=== PATIENT | male | born 1955 | race Caucasian/White ===

== ENCOUNTER → 2018-04-19 | Outpatient (CLI) | payer OTHER ==
[~2018-04-19] MED LIST: AMT10 PO; ASPI81TA28 PO; ATEN-175 PO; DILT-111 PO
--- NOTE | 2018-04-19 19:12 | DIAGNOSTIC IMAGING REPORT ---
LUMBAR SPINE W/O CONTRAST CLINICAL HISTORY: 63 year-old Male with LUMBAR SPINE. Acute left foot drop without reported trauma. COMPARISON: None. TECHNIQUE: Multiplanar, multi sequence MRI of the lumbar spine was performed without intravenous contrast. 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 No acute process of the imaged intra-abdominal, intrapelvic or paraspinal structures. 10 mm perineural root sleeve cyst is noted at S2-S3. No acute fracture or focal bone marrow edema. Multilevel discogenic degenerative changes as described below. Short pedicles throughout the lumbar spine cause baseline mild central canal narrowing. There is a focal area of heterogeneous signal involving the central canal posterior to the L1 vertebral body measuring up to 1.6 cm in craniocaudal dimension with apparent clumping of the nerve roots and increased T2 signal, image 9 series 4 and image 9 series 6. Circumscribed mass is not clearly seen. The conus medullaris terminates at the L1 level. The remaining cauda equina appear unremarkable. T12-L1: Spondylitic spurring with circumferential annular disc bulge, ligamentum flavum thickening and mild facet arthrosis. Suggested focal disc protrusion measures 7 mm involving the left lateral recess distribution causing mild to moderate left lateral recess stenosis. No significant central canal or foraminal narrowing identified. L1-L2: Spondylitic spurring with circumferential annular disc bulge favoring the right paracentral distribution, severe facet arthrosis with ligamentum flavum thickening cause severe central canal narrowing, AP dimension of the thecal sac measuring 5 mm. Moderate right and mild to moderate left foraminal stenosis. L2-L3: Spondylitic spurring with circumferential annular disc bulge, ligamentum flavum thickening and severe facet arthrosis. Thecal sac is narrowed to 6 mm in AP dimension causing moderate to severe central canal and mild to moderate bilateral foraminal narrowing. L3-L4: Spondylitic spurring with large circumferential annular disc bulge. Left paracentral/left lateral recess disc extrusion measures 0.4 x 1.0 x 1.2 cm in AP, transverse and craniocaudal dimensions. There is resultant moderate central canal, mild left lateral recess and moderate bilateral foraminal narrowing. L4-L5: Spondylitic spurring with circumferential annular disc bulge, severe facet arthrosis with ligamentum flavum thickening. These findings cause mild central canal, moderate to severe right and severe left foraminal stenosis. L5-S1: 4 mm retrolisthesis L5 on S1 with spondylitic spurring, circumferential annular disc bulge and moderate facet arthrosis. No significant central canal narrowing. Moderate right and severe left foraminal stenosis. IMPRESSION: 1. Focal area of heterogeneous signal involving the central canal posterior to the L1 vertebral body measuring up to 1.6 cm in craniocaudal dimension with apparent clumping of the nerve roots and increased T2 signal is noted. These findings may be secondary to associated central canal stenosis at L1-L2 as described above however an intradural extramedullary mass lesion could have a similar appearance. Further evaluation with MRI of the lumbar spine with IV contrast recommended. 2. Shortened pedicles cause baseline mild central canal stenosis. Multilevel advanced discogenic degenerative changes and facet arthrosis cause varying degrees of central canal and foraminal narrowing as above. Severe central canal stenosis at L1-L2 with moderate to severe central canal stenosis at L2-L3. 3. Multilevel severe foraminal narrowing as above. The above report was generated using voice recognition software. It may contain grammatical, syntax or spelling errors. Dictated: 04/19/2018 5:56 PM Transcribed: 04/19/2018 7:12 PM [email or web address] Electronically signed by: Saurabh Zamora M.D. 04/19/2018 9:57 PM Dictated Date/Time: 04/19/2018 5:56 PM
== END | disposition home or self-care (01) ==
LOC: C.MRI 04-12 20:20
PROVIDERS: ATTEND Physician Assistant
DX: M48.061 Spinal stenosis, lumbar region without neurogenic claudication (principal); M47.817 Spondylosis without myelopathy or radiculopathy, lumbosacral region; R93.7 Abnormal findings on diagnostic imaging of other parts of musculoskeletal system; M21.372 Foot drop, left foot

== ENCOUNTER 2024-05-31 10:04 | Inpatient (IN) ==
--- NOTE | 2024-05-31 10:42 | Emergency Department Note ---
Impression & Plan Acute Lyme disease, Leukopenia, Acute hyponatremia, Thrombocytopenia, Acute hypokalemia ED Provider Note NAME: YARIEL CHOE AGE: 69 SEX: M : 1955 ARRIVES VIA: Walk-In INFORMANT: Patient ED PROVIDER(S): Maury Oseguera DO CHIEF COMPLAINT: Chills HPI: Patient is a 69-year-old male who presents the ER for chills. His symptoms initially started on Thursday with feeling hot and cold and chills. He admits to a cough that has been present for the past 2 weeks. No change. No chest pain or shortness of breath. No belly pain. No nausea vomiting or diarrhea. No dysuria urgency or frequency. No other exacerbating or remitting factors. Denies any tick bites. No open wounds or sores. He notes he was taken Tylenol and Motrin previously but has not taken any in the past 24 hours. ADDITIONAL HISTORY OBTAINED: Per HPI Chronic Medical/Social Conditions Affecting Care: Per HPI PAST MEDICAL HISTORY:See Below PAST SURGICAL HISTORY:See Below FAMILY HISTORY:See Below SOCIAL HISTORY:See Below HOME MEDICATIONS:See Below ALLERGIES:See Below VITALS:See Below PHYSICAL EXAMINATION: GENERAL: Sitting up in bed, alert, well appearing, well nourished, no distress, non-toxic EYE EXAM: normal conjunctiva. PERRL and EOM's grossly intact. OROPHARYNX: no exudate, no erythema, lips, buccal mucosa, and tongue normal and mucous membranes are moist NECK: supple, no nuchal rigidity, no adenopathy, non-tender LUNGS: Clear to auscultation. Normal chest wall mechanics HEART: no murmurs, S1 normal and S2 normal ABDOMEN: abdomen soft, non-tender, normo-active bowel sounds, no masses, no rebound or guarding. BACK: Back is symmetrical on inspection and there is no deformity, no midline tenderness, no CVA tenderness. SKIN: no rashes and no bruising UPPER EXTREMITIES: upper extremities are grossly normal. LOWER EXTREMITIES: No pitting edema. NEURO EXAM: Normal sensorium, cranial nerves II-XII grossly intact, normal speech, no gross weakness of arms, no gross weakness of legs. MEDICAL DECISION MAKING: Patient is a 69-year-old male who presents ER for above-stated complaint. IV was established blood work is obtained. Labs show leukopenia 4000. No significant anemia. Thrombocytopenia at 92 and commendation with a hyponatremia hypokalemia and a low mag at 1.4. LFTs were unremarkable. Troponin mildly elevated. Pro-Hal 8.7. UA was unremarkable. Viral panel was positive for Lyme screen as well as IgG. This would support the hyponatremia leukopenia and thrombocytopenia. Also considered anaplasmosis and consequently covered initially with Rocephin IV and followed this by doxycycline. Smear was negative but still has a 30% chance of having anaplasmosis. Patient was updated bedside discussed with the hospitalist for further workup. Given 2 L of normal saline. Consults/Care Managements Discussions: Per [facility] Triage Nursing notes reviewed. Limited review of prior medical records performed Vital Signs: reviewed and remarkable for no significant abnormalities Differential diagnosis: Differential diagnosis includes etiologies such as sepsis, UTI, pneumonia, metabolic, electrolyte abnormalities, cardiac sources, intracerebral event, toxicologic, neurological, as well as others were entertained. ER treatment provided: See below Diagnostics interpreted by me include EKG and cardiac monitoring as listed below: -Cardiac Monitoring: An order was placed for continuous cardiac monitoring. The monitor shows a rate of 80 with sinus rhythm. -ECG: Sinus rhythm rate 83 Left axis Right bundle branch block T wave version septal leads QTc 44 -Laboratory studies:Interpreted by me as stated above in MDM and shown below. Imaging studies: Xrays: As interpreted by me: Portable AP upright 1 view of the chest shows no focal infiltrate CTs show: None Procedures: None Critical Care: None Past Med/Surg History Problem List (Updated 05/31/24 @ 14:12 by Maury Oseguera DO) Acute hypokalemia (Acute) Thrombocytopenia (Acute) Acute hyponatremia (Acute) Leukopenia (Acute) Acute Lyme disease (Acute) Lyme borreliosis Electrolyte and fluid disorder Change in bowel habits Family history normal Family history of colon cancer Encounter for pre-operative examination Change in bowel habits Encounter for pre-operative examination History of colon polyps Pulmonary nodules monitoring, yearly CT's HLD (hyperlipidemia) Obesity (BMI 30-39.9) Hypertension (Acute) Medical History Bradycardia pt states runs around 58 Constipation Depression HLD (hyperlipidemia) Hypertension Left foot drop Obesity (BMI 30-39.9) Pulmonary nodules monitoring, yearly CT's Surgical History History of colonoscopy with polypectomy History of laparoscopic cholecystectomy (~08/2018) History of tonsillectomy History of tooth extraction all teeth removed Family History Mother Family history of diabetes mellitus Uncle Family history of diabetes mellitus Uncle Family history of diabetes mellitus Father Family hx of colon cancer Other No family history of adverse response to anesthesia No significant family history Social History Smoking Status: Never smoker Second Hand Exposure: No; Do You Dip or Chew Tobacco: No; Hx Alcohol Use: No Hx Substance Use: No Preferred Language: Beninese Communication Ability: Effective Visual Impairment: No Limitations 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 Beliefs That Will Affect Care: None Current Living Situation: Family Current Living Situation Comment: lives with son Feels Safe at Home: Yes Assistive Devices: Denture - Upper, Denture - Lower and Glasses Allergies Allergies Allergy/AdvReac Type Severity Reaction Status Date / Time No Known Allergies Allergy Verified 05/31/24 11:19 Home Meds Home Medications Medication Instructions Recorded Confirmed aspirin 81 mg tablet,delayed 81 mg PO HS 09/22/18 05/31/24 release chlorthalidone 25 mg tablet 25 mg PO QAM 09/22/18 05/31/24 diltiazem HCl 300 mg 300 mg PO QAM 09/22/18 05/31/24 tablet,extended release 24 hr atenolol 50 mg tablet 50 mg PO QAM 01/18/21 05/31/24 docusate sodium 100 mg capsule 100 mg PO DAILY PRN Constipation 01/18/21 05/31/24 omega-3 fatty acids 1,000 mg PO HS 01/18/21 05/31/24 pravastatin 20 mg tablet 20 mg PO HS 01/18/21 05/31/24 psyllium husk 3.4 gram/5.4 gram 1 tbsp PO QAM 01/18/21 05/31/24 oral powder (Metamucil) finasteride 5 mg tablet 5 mg PO QAM 03/02/23 05/31/24 tamsulosin 0.4 mg capsule 0.4 mg PO QAM 03/02/23 05/31/24 Results & Data (ED) Vital Signs Vital Signs - 24 hr 05/31/24 10:07 05/31/24 10:19 05/31/24 10:23 Temperature 37 C Temperature Source Oral Pulse Rate 91 H 84 Pulse Rate [Apical] Respiratory Rate 14 Respiratory Effort / Characteristics Respiratory Depth Respiratory Pattern Blood Pressure 125/71 Blood Pressure [Right Arm] Blood Pressure Mean 89 Blood Pressure Mean [Right Arm] Blood Pressure Position [Right Arm] Pulse Oximetry 93 93 Oxygen Delivery Method Room Air Room Air Sepsis New/Unexplained Change in Mental Status No Sepsis Action Taken by Nursing No Action Required 05/31/24 10:37 05/31/24 12:38 05/31/24 13:30 Temperature Temperature Source Pulse Rate Pulse Rate [Apical] 83 77 80 Respiratory Rate 18 20 20 Respiratory Effort / Characteristics Non-Labored Spontaneous Respiratory Depth Normal Normal Normal Respiratory Pattern Regular Blood Pressure Blood Pressure [Right Arm] 132/65 125/72 118/72 Blood Pressure Mean Blood Pressure Mean [Right Arm] 87 89 87 Blood Pressure Position [Right Arm] Lying Pulse Oximetry 90 91 Oxygen Delivery Method Room Air Room Air Room Air Sepsis New/Unexplained Change in Mental Status Sepsis Action Taken by Nursing Laboratory Data 05/31/24 10:30 05/31/24 10:30 Lab Results 05/31/24 05/31/24 05/31/24 Range/Units 10:30 10:39 10:50 WBC 4.15 L (4.8-10.8) K/ul RBC 5.08 (4.70-6.10) M/uL Hgb 15.2 (14.0-18.0) g/dl Hct 42.6 (42.0-52.0) % MCV 83.9 (80.0-100.0) fL MCH 29.9 (25.0-34.0) pg MCHC 35.7 (32.0-36.0) g/dL RDW Std Deviation 37.8 (36.4-46.3) fL RDW Coeff of [place] 12.4 (11.5-14.5) % Plt Count 92 L (130-400) K/uL MPV 10.7 (9.4-12.4) fL Immature Gran % (Auto) 0.5 % Neut % (Auto) 85.6 % Lymph % (Auto) 6.7 % [place] % (Auto) 7.0 % Eos % (Auto) 0.0 % Baso % (Auto) 0.2 % Neut # (Auto) 3.55 (1.40-6.50) K/uL Lymph # (Auto) 0.28 L (1.20-3.40) K/uL [place] # (Auto) 0.29 (0.11-0.59) K/uL Eos # (Auto) 0.00 (0.00-0.50) K/uL Baso # (Auto) 0.01 (0.00-0.20) K/uL Immature Gran # (Auto) 0.02 (0.01-0.20) K/uL Sodium 130 L (136-145) mmol/L Potassium 2.6 L (3.5-5.1) mmol/L Chloride 95 L (98-107) mmol/L Carbon Dioxide 26 (21-32) mmol/L Anion Gap 9 (3-11) BUN 17 (6-23) mg/dl Creatinine 0.96 (0.6-1.4) mg/dl Est Cr Clr Drug Dosing 94.4 ml/min Est GFR ( Amer) 91.8 ml/min Est GFR (Non-Af Amer) 79.2 ml/min BUN/Creatinine Ratio 17.7 (10-20) Glucose 142 H (70-99(Fasting)) mg/dl Lactate 1.6 (0.4-2.0) mmol/L Calcium 8.5 L (8.6-10.3) mg/dl Magnesium 1.4 L (1.7-2.4) mg/dl Total Bilirubin 1.5 H (0.2-1.0) mg/dl Direct Bilirubin 0.4 H (0-0.2) mg/dl AST 48 H (13-39) U/L ALT 30 (7-52) U/L Alkaline Phosphatase 73 (34-104) U/L Troponin I High Sens 20.8 H (0-20) pg/ml Total Protein 6.7 (6.0-8.3) gm/dl Albumin 3.7 (3.4-5.0) gm/dl Procalcitonin 0.72 H (0-0.5) ng/ml Urine Color Urine Appearance (Clear) Urine pH (4.5-7.5) Ur Specific [place] (1.000-1.030) Urine Protein (Negative) Urine Glucose (UA) (Negative) Urine Ketones (Negative) Urine Blood (Negative) Urine Nitrite (Negative) Urine Bilirubin (Negative) Urine Urobilinogen (Negative) Ur Leukocyte Esterase (Negative) Urine WBC (Auto) (0-5) /hpf Urine RBC (Auto) (0-2) /hpf U Hyaline Cast (Auto) (0-2) /lpf U Epithel Cells (Auto) (0-2) /hpf Urine Bacteria (Auto) (None Seen) Hyaline Casts (None Presnt) /lpf Granular Casts (None Prsent) /lpf Urine Mucus (None Prsent) Adenovirus (PCR) Not Detected (NotDetected) Anaplasma Smear B. pertussis DNA (PCR) Not Detected (NotDetected) B.parapertussis DNA PCR Not Detected (NotDetected) Lyme Disease Screen Positive H (Negative) Lyme Tier 2 IgG Confirm Positive H (Negative) Lyme Tier 2 IgM Confirm Negative (Negative) C. pneumoniae DNA (PCR) Not Detected (NotDetected) Coronavirus OC43 (PCR) Not Detected (NotDetected) Coronavirus HKU1 (PCR) Not Detected (NotDetected) Coronavirus 229E (PCR) Not Detected (NotDetected) SARS-CoV-2 (PCR) Not Detected (NotDetected) Coronavirus NL63 (PCR) Not Detected (NotDetected) Human Metapneumovir PCR Not Detected (NotDetected) Influenza Type A (PCR) Not Detected (NotDetected) Influenza Type B (PCR) Not Detected (NotDetected) M. pneumoniae (PCR) Not Detected (NotDetected) Parainfluenza 1 (PCR) Not Detected (NotDetected) Parainfluenza 2 (PCR) Not Detected (NotDetected) Parainfluenza 3 (PCR) Not Detected (NotDetected) Parainfluenza 4 (PCR) Not Detected (NotDetected) RSV (PCR) Not Detected (NotDetected) Entero/Rhino (PCR) Not Detected (NotDetected) 05/31/24 05/31/24 Range/Units 12:16 12:50 WBC (4.8-10.8) K/ul RBC (4.70-6.10) M/uL Hgb (14.0-18.0) g/dl Hct (42.0-52.0) % MCV (80.0-100.0) fL MCH (25.0-34.0) pg MCHC (32.0-36.0) g/dL RDW Std Deviation (36.4-46.3) fL RDW Coeff of [place]use[place] (11.5-14.5) % Plt Count (130-400) K/uL MPV (9.4-12.4) fL Immature Gran % (Auto) % Neut % (Auto) % Lymph % (Auto) % [place] % (Auto) % Eos % (Auto) % Baso % (Auto) % Neut # (Auto) (1.40-6.50) K/uL Lymph # (Auto) (1.20-3.40) K/uL [place] # (Auto) (0.11-0.59) K/uL Eos # (Auto) (0.00-0.50) K/uL Baso # (Auto) (0.00-0.20) K/uL Immature Gran # (Auto) (0.01-0.20) K/uL Sodium (136-145) mmol/L Potassium (3.5-5.1) mmol/L Chloride (98-107) mmol/L Carbon Dioxide (21-32) mmol/L Anion Gap (3-11) BUN (6-23) mg/dl Creatinine (0.6-1.4) mg/dl Est Cr Clr Drug Dosing ml/min Est GFR ( Amer) ml/min Est GFR (Non-Af Amer) ml/min BUN/Creatinine Ratio (10-20) Glucose (70-99(Fasting)) mg/dl Lactate (0.4-2.0) mmol/L Calcium (8.6-10.3) mg/dl Magnesium (1.7-2.4) mg/dl Total Bilirubin (0.2-1.0) mg/dl Direct Bilirubin (0-0.2) mg/dl AST (13-39) U/L ALT (7-52) U/L Alkaline Phosphatase (34-104) U/L Troponin I High Sens 20.5 H (0-20) pg/ml Total Protein (6.0-8.3) gm/dl Albumin (3.4-5.0) gm/dl Procalcitonin (0-0.5) ng/ml Urine Color Dark Yellow Urine Appearance Clear (Clear) Urine pH 6.5 (4.5-7.5) Ur Specific [place] 1.012 (1.000-1.030) Urine Protein 1+ H (Negative) Urine Glucose (UA) Negative (Negative) Urine Ketones Negative (Negative) Urine Blood Negative (Negative) Urine Nitrite Negative (Negative) Urine Bilirubin Negative (Negative) Urine Urobilinogen Positive H (Negative) Ur Leukocyte Esterase Negative (Negative) Urine WBC (Auto) 0-5 (0-5) /hpf Urine RBC (Auto) 0-2 (0-2) /hpf U Hyaline Cast (Auto) 6-10 H (0-2) /lpf U Epithel Cells (Auto) 0-2 (0-2) /hpf Urine Bacteria (Auto) None Seen (None Seen) Hyaline Casts P (None Presnt) /lpf Granular Casts P (None Prsent) /lpf Urine Mucus Present A (None Prsent) Adenovirus (PCR) (NotDetected) Anaplasma Smear See Comment B. pertussis DNA (PCR) (NotDetected) B.parapertussis DNA PCR (NotDetected) Lyme Disease Screen (Negative) Lyme Tier 2 IgG Confirm (Negative) Lyme Tier 2 IgM Confirm (Negative) C. pneumoniae DNA (PCR) (NotDetected) Coronavirus OC43 (PCR) (NotDetected) Coronavirus HKU1 (PCR) (NotDetected) Coronavirus 229E (PCR) (NotDetected) SARS-CoV-2 (PCR) (NotDetected) Coronavirus NL63 (PCR) (NotDetected) Human Metapneumovir PCR (NotDetected) Influenza Type A (PCR) (NotDetected) Influenza Type B (PCR) (NotDetected) M. pneumoniae (PCR) (NotDetected) Parainfluenza 1 (PCR) (NotDetected) Parainfluenza 2 (PCR) (NotDetected) Parainfluenza 3 (PCR) (NotDetected) Parainfluenza 4 (PCR) (NotDetected) RSV (PCR) (NotDetected) Entero/Rhino (PCR) (NotDetected) Administered Medications Magnesium Sulfate/Dextrose (Magnesium Sulfate / D5w) 1 gm in 100 mls @ 50 mls/hr IV ONE ONE Stop: 05/31/24 14:29 Last Admin: 05/31/24 12:53 Dose: 50 mls/hr Documented By: BEV Discontinued Medications Ceftriaxone Sodium (Rocephin) 2,000 mg in 50 mls @ 100 mls/hr IV NOW STA Stop: 05/31/24 11:09 Last Infusion: 05/31/24 11:19 Dose: Infused Documented By: Admin: 05/31/24 10:48 Dose: 100 mls/hr Documented By: GREYSON Sodium Chloride (Nss) 1,000 mls @ 999 mls/hr IV .Q1H1M ONE Stop: 05/31/24 11:41 Last Infusion: 05/31/24 11:42 Dose: Infused Documented By: Admin: 05/31/24 10:48 Dose: 999 mls/hr Documented By: GREYSON Doxycycline Hyclate 100 mg/ (Dextrose) 100 mls @ 50 mls/hr IV NOW STA Stop: 05/31/24 14:03 Last Admin: 05/31/24 12:53 Dose: 50 mls/hr Documented By: BEV Potassium Chloride (Potassium Chloride Crtab 20 Meq Tabcr) 40 meq PO NOW STA Stop: 05/31/24 12:05 Last Admin: 05/31/24 12:52 Dose: 40 meq Documented By: BEV Imaging Data Radiologist's Impression: Chest X-Ray 05/31/24 10:23 XR chest 1V portable CLINICAL HISTORY: Sepsis. COMPARISON STUDY: Chest CT August 21, 2021. Chest radiograph January 11, 2021. FINDINGS: Lung volumes are normal. Lungs are clear. There is no pneumothorax or pleural effusion. Cardiac size is stable. Mediastinal contours are normal. There is no evidence for pulmonary edema. IMPRESSION: No acute cardiopulmonary findings. No change in appearance of the chest. ACT 112: Negative or not required by law. Electronically signed by: Don Mccarthy M.D. 05/31/2024 10:41 AM Discharge Plan Visit Data Chief Complaint: Illness Stated Complaint: FEVER, CHILLS ED Provider: Maury Oseguera Discharge Problem: Acute Lyme disease, Leukopenia, Acute hyponatremia, Thrombocytopenia, Acute hypokalemia Forms Stand Alone Forms: My [facility] Prescriptions Prescriptions: No Action chlorthalidone 25 mg Tablet 25 mg PO QAM aspirin 81 mg Tablet,Delayed Release (Dr/Ec) 81 mg PO HS diltiazem HCl 300 mg tablet extended release 24 hr 300 mg PO QAM pravastatin 20 mg Tablet 20 mg PO HS atenolol 50 mg Tablet 50 mg PO QAM docusate sodium 100 mg capsule 100 mg PO DAILY PRN (Reason: Constipation) omega-3 fatty acids Capsule 1,000 mg PO HS Metamucil 3.4 gram/5.4 gram Powder 1 tbsp PO QAM tamsulosin 0.4 mg Capsule 0.4 mg PO QAM finasteride 5 mg Tablet 5 mg PO QAM Referrals Referrals: Liliane Armendariz MD [Primary Care Provider] - Discharge Problem: Leukopenia Qualifiers: Leukopenia type: unspecified Qualified Code(s): D72.819 - Decreased white blood cell count, unspecified
[2024-05-31] MEDS: cefTRIAXone SODIUM 2,000 MG/50 ML BAG IV STA (10:48)
[2024-05-31] MEDS: SODIUM CHLORIDE 0.9% 1,000 ML IV ONE (10:48)
[2024-05-31 11:06] LABS: Hematocrit (blood only) 42.6 % (42.0-52.0); Hemoglobin 15.2 g/dl (14.0-18.0); Mean Corpuscular Hemoglobin 29.9 pg (25.0-34.0); Mean Corpuscular Hgb Conc 35.7 g/dL (32.0-36.0); Mean Corpuscular Volume 83.9 fL (80.0-100.0); Mean Platelet Volume 10.7 fL (9.4-12.4); Platelet Count 92 K/uL (130-400); RDW Coefficient of Variation 12.4 % (11.5-14.5); RDW Standard Deviation 37.8 fL (36.4-46.3); Red Blood Count 5.08 M/uL (4.70-6.10); White Blood Count 4.15 K/ul (4.8-10.8)
[2024-05-31 11:12] LABS: Albumin Level 3.7 gm/dl (3.4-5.0); BUN Creatinine Ratio 17.7 (10-20); Bilirubin Direct 0.4 mg/dl (0-0.2); Bilirubin,Total 1.5 mg/dl (0.2-1.0); Calcium 8.5 mg/dl (8.6-10.3); Creatinine Clr Calc Pharmacy 94.4 ml/min; Est GFR (African American) 91.8 ml/min; Est GFR (Non-African American) 79.2 ml/min; Magnesium 1.4 mg/dl (1.7-2.4); Potassium 2.6 mmol/L (3.5-5.1); Total Protein 6.7 gm/dl (6.0-8.3)
[2024-05-31 11:18] LABS: Troponin I High Sensitivity 20.8 pg/ml (0-20)
[2024-05-31 11:37] LABS: Basophils # (auto) 0.01 K/uL (0.00-0.20); Basophils % (auto) 0.2 %; Immature Granulocytes # (auto) 0.02 K/uL (0.01-0.20); Immature Granulocytes % (auto) 0.5 %; Lymphocytes # (auto) 0.28 K/uL (1.20-3.40); Lymphocytes % (auto) 6.7 %; Monocytes # (auto) 0.29 K/uL (0.11-0.59); Neutrophils # (auto) 3.55 K/uL (1.40-6.50); Neutrophils % (auto) 85.6 %
[2024-05-31 11:51] LABS: Lyme Screen Rflx Confirmation Positive (Negative)
[2024-05-31] MEDS ORDERED: MAG SULFATE 50% 1GM/2ML VIAL IV STA (12:04)
[2024-05-31 12:13] LABS: Adenovirus PCR Not Detected (NotDetected); Bordetella parapertussis PCR Not Detected (NotDetected); Bordetella pertussis PCR Not Detected (NotDetected); Chlamydia pneumoniae PCR Not Detected (NotDetected); Coronavirus 229E PCR Not Detected (NotDetected); Coronavirus CoV-2 (COVID19)PCR Not Detected (NotDetected); Coronavirus HKU1 PCR Not Detected (NotDetected); Coronavirus NL63 PCR Not Detected (NotDetected); Coronavirus OC43PCR Not Detected (NotDetected); Human Metapneumovirus PCR Not Detected (NotDetected); Influenza A PCR Not Detected (NotDetected); Influenza B PCR Not Detected (NotDetected); Mycoplasma pneumoniae PCR Not Detected (NotDetected); Parainfluenza Virus 1 PCR Not Detected (NotDetected); Parainfluenza Virus 2 PCR Not Detected (NotDetected); Parainfluenza Virus 3 PCR Not Detected (NotDetected); Parainfluenza Virus 4 PCR Not Detected (NotDetected); Respiratory Syncytial VirusPCR Not Detected (NotDetected); Rhinovirus/Enterovirus PCR Not Detected (NotDetected)
[2024-05-31 12:25] LABS: Lyme Ab IgG 2nd Tier Confirm Positive (Negative); Lyme Ab IgM 2nd Tier Confirm Negative (Negative)
[2024-05-31] MEDS: POTASSIUM CHLORIDE CRTAB 20 MEQ TABCR PO STA (12:52)
[2024-05-31] MEDS: DOXYCYCLINE HYCLATE 100 MG in DEXTROSE 5% MINI-B 100 ML IV STA (12:53)
[2024-05-31] MEDS: MAGNESIUM SULFATE / D5W 1 GM/100 ML BAG IV ONE (12:53)
[2024-05-31] MEDS ORDERED: ALBUT/IPRATROP 3MG/0.5MG NEB 3 ML VIAL NEB PRN (13:12)
--- NOTE | 2024-05-31 13:21 | History & Physical Report ---
Date of Service May 31, 2024 Assessment & Plan (1) Lyme borreliosis: Plan: Continue CTX Continue doxycycline Await confirmatory test for Lyme (2) Electrolyte and fluid disorder: Plan: Trend labs Continue gentle IV fluids Monitor potassium and magnesium Follow sodium levels (3) Hypertension: Plan: Continue outpatient antihypertensive (4) HLD (hyperlipidemia): Plan: Continue pravastatin (5) Left foot drop: Plan: Continue using brace PT and OT consult Present on Admission?: Yes (6) Constipation: Plan: Continue Colace and MiraLAX A total of 71 minutes were spent in the care and care coordination for this patient Present on Admission?: Yes History of Present Illness Chief Complaint: Fever, chills, generalized weakness Primary Care Provider: Liliane Armendariz MD Jonathan Miranda is a 69 y/o male with a PMHX significant for HLD, HTN, BPH and left sided sciatica with left foot drop(He wears a brace on the left lower extremity). He presents to the ED today with complaints of chills, fever, and weakness. He has a poor appetite. His symptoms have been present For 2 to 3 day s. He has a dry cough. He denies sputum production. He denies sore throat or nasal congestion. He denies headache. His Lyme disease screen was positive in the ED. He cannot recall a tick bite but does mention a small lesion on his left upper thigh. He does have a dog that is in the arriaga quite a bit. He does not go outside much because of his foot drop. Workup in the ED reveals a clear chest x-ray. He has evidence of hypokalemia, hypomagnesia and hyponatremia. He was given IV magnesium and oral potassium supplementation in the ED. He was started on IV ceftriaxone and given oral doxycycline. Patient is admitted for further workup and treatment. Allergies Allergy/AdvReac Type Severity Reaction Status Date / Time No Known Allergies Allergy Verified 05/31/24 11:19 Home Medications Medication Instructions Recorded Confirmed Type aspirin 81 mg tablet,delayed 81 mg PO HS 09/22/18 05/31/24 History release chlorthalidone 25 mg tablet 25 mg PO QAM 09/22/18 05/31/24 History diltiazem HCl 300 mg 300 mg PO QAM 09/22/18 05/31/24 History tablet,extended release 24 hr atenolol 50 mg tablet 50 mg PO QAM 01/18/21 05/31/24 History docusate sodium 100 mg capsule 100 mg PO DAILY PRN Constipation 01/18/21 05/31/24 History omega-3 fatty acids 1,000 mg PO HS 01/18/21 05/31/24 History pravastatin 20 mg tablet 20 mg PO HS 01/18/21 05/31/24 History psyllium husk 3.4 gram/5.4 gram 1 tbsp PO QAM 01/18/21 05/31/24 History oral powder (Metamucil) finasteride 5 mg tablet 5 mg PO QAM 03/02/23 05/31/24 History tamsulosin 0.4 mg capsule 0.4 mg PO QAM 03/02/23 05/31/24 History Past Med/Surg History Problem List (Updated 05/31/24 @ 13:39 by Rock Bae DO) Lyme borreliosis Electrolyte and fluid disorder Change in bowel habits Family history normal Family history of colon cancer Encounter for pre-operative examination Change in bowel habits Encounter for pre-operative examination History of colon polyps Pulmonary nodules monitoring, yearly CT's HLD (hyperlipidemia) Obesity (BMI 30-39.9) Hypertension (Acute) Medical History Bradycardia pt states runs around 58 Constipation Depression HLD (hyperlipidemia) Hypertension Left foot drop Obesity (BMI 30-39.9) Pulmonary nodules monitoring, yearly CT's Surgical History History of colonoscopy with polypectomy History of laparoscopic cholecystectomy (~08/2018) History of tonsillectomy History of tooth extraction all teeth removed Family History Mother Family history of diabetes mellitus Uncle Family history of diabetes mellitus Uncle Family history of diabetes mellitus Father Family hx of colon cancer Other No family history of adverse response to anesthesia No significant family history Social History Smoking Status: Never smoker Second Hand Exposure: No; Do You Dip or Chew Tobacco: No; Hx Alcohol Use: No Hx Substance Use: No Preferred Language: Uzbek Communication Ability: Effective Visual Impairment: No Limitations Chuck Boner Required: No Beliefs That Will Affect Care: None Current Living Situation: Family Current Living Situation Comment: lives with son Feels Safe at Home: Yes Assistive Devices: Denture - Upper, Denture - Lower and Glasses Review of Systems Constitutional: Has fever, fatigue and chills Eyes: no diplopia and no worsening vision Ear, Nose, Mouth, Throat: no dizziness, no nasal discharge, no facial pain and no sore throat Cardiovascular: no chest pain, no palpitations, no lightheadedness and no syncope Genitourinary: no dysuria, no urinary frequency, no urinary hesitancy or no hematuria Integumentary: no rash, no lesions and no wounds Neurologic: Chronic back pain and foot drop on back Psychiatric: no depression and no anxiety Physical Exam Constitutional: well developed and well nourished Eyes: PERRL, conjunctivae normal, anicteric sclerae ENMT: external ear and nose normal, oropharynx normal Neck: trachea midline, no thyromegaly Respiratory: normal respiratory effort, lungs clear to auscultation Cardiovascular: Rate/Rhythm: regular rate and regular rhythm Chest (Breasts): Chest: normal inspection of chest Gastrointestinal (Abdomen): Inspection/Auscultation: abdomen normal to inspection and normal bowel sounds Skin: no rashes, warm and dry Neurologic: Has a foot drop and weakness on the left. CN intact, Alert O X 3 Results & Data Results & Data Vital Signs (Past 12 Hours) Vital Signs Temp Pulse Pulse Resp BP BP Pulse Ox 05/31/24 12:38 77 20 125/72 90 05/31/24 10:37 83 18 132/65 05/31/24 10:23 84 05/31/24 10:19 93 05/31/24 10:07 37 C 91 H 14 125/71 93 O2 Del Method 05/31/24 12:38 Room Air 05/31/24 10:37 Room Air 05/31/24 10:23 05/31/24 10:19 Room Air 05/31/24 10:07 Room Air Laboratory Results Laboratory Results WBC 4.15 K/ul (4.8-10.8) L 05/31/24 10:30 RBC 5.08 M/uL (4.70-6.10) 05/31/24 10:30 Hgb 15.2 g/dl (14.0-18.0) 05/31/24 10:30 Hct 42.6 % (42.0-52.0) 05/31/24 10:30 MCV 83.9 fL (80.0-100.0) 05/31/24 10:30 MCH 29.9 pg (25.0-34.0) 05/31/24 10:30 MCHC 35.7 g/dL (32.0-36.0) 05/31/24 10:30 RDW Std Deviation 37.8 fL (36.4-46.3) 05/31/24 10:30 RDW Coeff of Huseyin 12.4 % (11.5-14.5) 05/31/24 10:30 Plt Count 92 K/uL (130-400) L 05/31/24 10:30 MPV 10.7 fL (9.4-12.4) 05/31/24 10:30 Immature Gran % (Auto) 0.5 % 05/31/24 10:30 Neut % (Auto) 85.6 % 05/31/24 10:30 Lymph % (Auto) 6.7 % 05/31/24 10:30 [place] % (Auto) 7.0 % 05/31/24 10:30 Eos % (Auto) 0.0 % 05/31/24 10:30 Baso % (Auto) 0.2 % 05/31/24 10:30 Neut # (Auto) 3.55 K/uL (1.40-6.50) 05/31/24 10:30 Lymph # (Auto) 0.28 K/uL (1.20-3.40) L 05/31/24 10:30 [place] # (Auto) 0.29 K/uL (0.11-0.59) 05/31/24 10:30 Eos # (Auto) 0.00 K/uL (0.00-0.50) 05/31/24 10:30 Baso # (Auto) 0.01 K/uL (0.00-0.20) 05/31/24 10:30 Immature Gran # (Auto) 0.02 K/uL (0.01-0.20) 05/31/24 10:30 Sodium 130 mmol/L (136-145) L 05/31/24 10:30 Potassium 2.6 mmol/L (3.5-5.1) L 05/31/24 10:30 Chloride 95 mmol/L (98-107) L 05/31/24 10:30 Carbon Dioxide 26 mmol/L (21-32) 05/31/24 10:30 Anion Gap 9 (3-11) 05/31/24 10:30 BUN 17 mg/dl (6-23) 05/31/24 10:30 Creatinine 0.96 mg/dl (0.6-1.4) 05/31/24 10:30 Est Cr Clr Drug Dosing 94.4 ml/min 05/31/24 10:30 Est GFR ( Amer) 91.8 ml/min 05/31/24 10:30 Est GFR (Non-Af Amer) 79.2 ml/min 05/31/24 10:30 BUN/Creatinine Ratio 17.7 (10-20) 05/31/24 10:30 Glucose 142 mg/dl (70-99(Fasting)) H 05/31/24 10:30 Lactate 1.6 mmol/L (0.4-2.0) 05/31/24 10:30 Calcium 8.5 mg/dl (8.6-10.3) L 05/31/24 10:30 Magnesium 1.4 mg/dl (1.7-2.4) L 05/31/24 10:30 Total Bilirubin 1.5 mg/dl (0.2-1.0) H 05/31/24 10:30 Direct Bilirubin 0.4 mg/dl (0-0.2) H 05/31/24 10:30 AST 48 U/L (13-39) H 05/31/24 10:30 ALT 30 U/L (7-52) 05/31/24 10:30 Alkaline Phosphatase 73 U/L (34-104) 05/31/24 10:30 Troponin I High Sens 20.8 pg/ml (0-20) H 05/31/24 10:30 Total Protein 6.7 gm/dl (6.0-8.3) 05/31/24 10:30 Albumin 3.7 gm/dl (3.4-5.0) 05/31/24 10:30 Procalcitonin 0.72 ng/ml (0-0.5) H 05/31/24 10:30 Urine Color Dark Yellow 05/31/24 12:16 Urine Appearance Clear (Clear) 05/31/24 12:16 Urine pH 6.5 (4.5-7.5) 05/31/24 12:16 Ur Specific [place] 1.012 (1.000-1.030) 05/31/24 12:16 Urine Protein 1+ (Negative) H 05/31/24 12:16 Urine Glucose (UA) Negative (Negative) 05/31/24 12:16 Urine Ketones Negative (Negative) 05/31/24 12:16 Urine Blood Negative (Negative) 05/31/24 12:16 Urine Nitrite Negative (Negative) 05/31/24 12:16 Urine Bilirubin Negative (Negative) 05/31/24 12:16 Urine Urobilinogen Positive (Negative) H 05/31/24 12:16 Ur Leukocyte Esterase Negative (Negative) 05/31/24 12:16 Urine WBC (Auto) 0-5 /hpf (0-5) 05/31/24 12:16 Urine RBC (Auto) 0-2 /hpf (0-2) 05/31/24 12:16 U Hyaline Cast (Auto) 6-10 /lpf (0-2) H 05/31/24 12:16 U Epithel Cells (Auto) 0-2 /hpf (0-2) 05/31/24 12:16 Urine Bacteria (Auto) None Seen (None Seen) 05/31/24 12:16 Hyaline Casts P /lpf (None Presnt) 05/31/24 12:16 Granular Casts P /lpf (None Prsent) 05/31/24 12:16 Urine Mucus Present (None Prsent) A 05/31/24 12:16 Adenovirus (PCR) Not Detected (NotDetected) 05/31/24 10:50 Anaplasma Smear See Comment 05/31/24 12:50 B. pertussis DNA (PCR) Not Detected (NotDetected) 05/31/24 10:50 B.parapertussis DNA PCR Not Detected (NotDetected) 05/31/24 10:50 Lyme Disease Screen Positive (Negative) H 05/31/24 10:39 Lyme Tier 2 IgG Confirm Positive (Negative) H 05/31/24 10:39 Lyme Tier 2 IgM Confirm Negative (Negative) 05/31/24 10:39 C. pneumoniae DNA (PCR) Not Detected (NotDetected) 05/31/24 10:50 Coronavirus OC43 (PCR) Not Detected (NotDetected) 05/31/24 10:50 Coronavirus HKU1 (PCR) Not Detected (NotDetected) 05/31/24 10:50 Coronavirus 229E (PCR) Not Detected (NotDetected) 05/31/24 10:50 SARS-CoV-2 (PCR) Not Detected (NotDetected) 05/31/24 10:50 Coronavirus NL63 (PCR) Not Detected (NotDetected) 05/31/24 10:50 Human Metapneumovir PCR Not Detected (NotDetected) 05/31/24 10:50 Influenza Type A (PCR) Not Detected (NotDetected) 05/31/24 10:50 Influenza Type B (PCR) Not Detected (NotDetected) 05/31/24 10:50 M. pneumoniae (PCR) Not Detected (NotDetected) 05/31/24 10:50 Parainfluenza 1 (PCR) Not Detected (NotDetected) 05/31/24 10:50 Parainfluenza 2 (PCR) Not Detected (NotDetected) 05/31/24 10:50 Parainfluenza 3 (PCR) Not Detected (NotDetected) 05/31/24 10:50 Parainfluenza 4 (PCR) Not Detected (NotDetected) 05/31/24 10:50 RSV (PCR) Not Detected (NotDetected) 05/31/24 10:50 Entero/Rhino (PCR) Not Detected (NotDetected) 05/31/24 10:50 Impressions Chest X-Ray 05/31/24 10:23 XR chest 1V portable CLINICAL HISTORY: Sepsis. COMPARISON STUDY: Chest CT August 21, 2021. Chest radiograph January 11. FINDINGS: Lung volumes are normal. Lungs are clear. There is no pneumothorax or pleural effusion. Cardiac size is stable. Mediastinal contours are normal. There is no evidence for pulmonary edema. IMPRESSION: No acute cardiopulmonary findings. No change in appearance of the chest. ACT 112: Negative or not required by law. Electronically signed by: Don Mccarthy M.D. 05/31/2024 10:41 AM Medications Administered Doxycycline Hyclate 100 mg/ (Dextrose) 100 mls @ 50 mls/hr IV NOW STA Stop: 05/31/24 14:03 Last Admin: 05/31/24 12:53 Dose: 50 mls/hr Documented By: BEV Magnesium Sulfate/Dextrose (Magnesium Sulfate / D5w) 1 gm in 100 mls @ 50 mls/hr IV ONE ONE Stop: 05/31/24 14:29 Last Admin: 05/31/24 12:53 Dose: 50 mls/hr Documented By: BEV Code Status & VTE Plan VTE Prophylaxis Plan VTE Prophylaxis will be ordered: Yes
[2024-05-31 13:22] LABS: Appearance Urine Clear (Clear); Bacteria Urine Automated None Seen (None Seen); Bilirubin Urine Negative (Negative); Blood Urine Negative (Negative); Color Urine Dark Yellow; Epithelial Cell Urine Auto 0-2 /hpf (0-2); Glucose Urine UA Negative (Negative); Ketones Urine Negative (Negative); Leukocyte Esterase Urine Negative (Negative); Nitrite Urine Negative (Negative); Protein Urine 1+ (Negative); RBC Urine Automated 0-2 /hpf (0-2); Specific Gravity Urine 1.012 (1.000-1.030); Urobilinogen Urine Positive (Negative); WBC Urine Automated 0-5 /hpf (0-5); pH Urine 6.5 (4.5-7.5)
[2024-05-31 13:31] LABS: Granular Casts Urine P /lpf (None Prsent); Hyaline Casts Urine P /lpf (None Presnt); Mucus Urine Present (None Prsent)
[2024-05-31] MEDS ORDERED: DOCUSATE SODIUM 100 MG CAP PO PRN (15:43)
[2024-05-31] MEDS ORDERED: MAGNESIUM HYDROXIDE SUSP 30 ML UDC PO PRN (15:43)
[2024-05-31] MEDS ORDERED: ACETAMINOPHEN 325 MG TAB PO PRN (15:43)
[2024-05-31] MEDS ORDERED: cefTRIAXone SODIUM 1,000 MG/50 ML BAG IV STA (15:43)
[2024-05-31] MEDS ORDERED: ALUMINUM/MAGNESIUM SUSP 30 ML UDC PO PRN (15:43)
[2024-05-31] MEDS ORDERED: ONDANSETRON INJ 2 MG/ML 2 ML VIAL IV PRN (15:43)
[2024-05-31] MEDS: PLASMA-LYTE A 1,000 ML IV ONE (15:48)
[2024-05-31] MEDS: ENOXAPARIN INJ 40 MG/0.4 ML SYR SQ SCH (16:14)
[2024-05-31] MEDS: POTASSIUM CHLORIDE 10 MEQ in SODIUM CHLORIDE 0.9% 1,000 ML IV SCH (16:52)
[2024-05-31 17:37] LABS: BUN Creatinine Ratio 16.9 (10-20); Calcium 8.2 mg/dl (8.6-10.3); Creatinine Clr Calc Pharmacy 109.1 ml/min; Est GFR (African American) 102.6 ml/min; Est GFR (Non-African American) 88.5 ml/min; Magnesium 1.8 mg/dl (1.7-2.4); Potassium 2.6 mmol/L (3.5-5.1)
[2024-05-31] MEDS: PNEUMOCOCCAL VACCINE (PCV20) 20-VAL CONJ-DIP CRM/PF 0.5 ML SYR IM ONE (20:17)
[2024-05-31] MEDS: DOXYCYCLINE HYCLATE 100 MG CAP PO SCH (20:18)
[2024-05-31] MEDS: PRAVASTATIN SOD 20 MG TAB PO SCH (20:19)
[2024-05-31] MEDS: ASPIRIN 81 MG ECTAB PO SCH (20:19)
[2024-05-31] MEDS: POTASSIUM CHLORIDE / WTR 10 MEQ/100 ML PLCT IV SCH (20:38)
--- OUTSIDE RECORDS SUMMARY | 2024-05-31 20:50 | External Medical Summary | Summary of Care ---
Author Name Unknown Organization [facility] Address [address] [facility] [place] [address] Phone [phone] Care Team Providers Care Gold Plater Name Role Phone Liliane Armendariz MD Primary Care Provid er Reason for Visit * Reason Onset Date Comments Follow Up 04/15/2024 Encounter Details Date Type Department Care Team (Late st Contact Info) Description 04/15/2024 11:00 AM EDT Scheduled Telephone Interventional Pain Center, [facility] [address] [place] [address] [place] Nurse Phone Call Interventional Pain [facility] [address] [place] [phone] Allergies No known active allergiesdocumented as of this encounter (statuses as of 04/15/2024) Medications Medication Sig Dispensed Refills Start Date End Date Status Fish Oil 1000 MG Oral Capsule Take 1 Capsule by mouth in the morning. 0 Active Aspirin 81 MG Oral Tablet Delayed Release Take 1 Tablet by mouth in the morning. 0 Active Fiber Diet Oral Tablet Take by mouth. 0 Active dilTIAZem HCl ER Coated Beads 300 MG Oral Tablet Extended Release 24 Hour TAKE ONE TABLET BY MOUTH EVERY DAY 90 Tablet 2 01/31/2023 Active Pravastatin Sodium 20 MG Oral Tablet (Pravachol) TAKE ONE TABLET BY MOUTH EVERY DAY 90 Tablet 2 10/12/2023 Active Atenolol 50 MG Oral Tablet (Tenormin) TAKE ONE TABLET BY MOUTH IN THE MORNING 90 Tablet 2 10/12/2023 4 Active dilTIAZem HCl ER 300 MG Oral Tablet Extended Release 24 Hour TAKE ONE TABLET BY MOUTH EVERY DAY 90 Tablet 2 10/12/2023 4 Active Chlorthalidone 25 MG Oral Tablet (Hygroton) TAKE ONE TABLET BY MOUTH EVERY DAY 90 Tablet 3 10/28/2023 Active Ofloxacin 0.3 % Ophthalmic Solution (Ocuflox)Indications :Conjunctivitis of both eyes, unspecified conjunctivitis type Instill 1 Drop into eye in the morning and 1 Drop at noon and 1 Drop in the evening and 1 Drop before bedtime. 5 mL 0 12/04/2023 Active Additional Information Patient not taking.Reported on 03/18/2024 Benzonatate 100 MG Oral CapsuleIndications:V iral URI with cough Take 2 Capsules by mouth 3 times a day as needed for Cough. 30 Capsule 1 12/04/2023 Active DULoxetine HCl 20 MG Oral Capsule Delayed Release Particles (Cymbalta) Take 1 Capsule by mouth in the morning. 90 Capsule 3 12/11/2023 Active Finasteride 5 MG Oral Tablet (Proscar) TAKE ONE TABLET BY MOUTH EVERY MORNING 90 Tablet 3 02/02/2024 5 Active Tamsulosin HCl 0.4 MG Oral Capsule (Flomax) TAKE ONE CAPSULE BY MOUTH EVERY MORNING 90 Capsule 3 02/02/2024 5 Active documented as of this encounter (statuses as of 04/15/2024) Active Problems Problem Noted Date Diagnosed Date Claustrophobia 12/04/2023 Pulmonary nodules 08/28/2023 Sacroiliac joint pain 08/28/2023 BPH with obstruction/lower urinary tract symptom s 08/26/2023 HTN, goal below 140/90 08/23/2021 HLD (hyperlipidemia) 08/23/2021 Bilateral sciatica 08/23/2021 Foot-drop 04/27/2018 Spinal stenosis of lumbar region 04/27/2018 documented as of this encounter (statuses as of 04/15/2024) Immunizations Name Administration Dates Next Due COVID-19 mRNA, LNP-s, No Pre serve, 2-Dose Series (Moderna) 03/23/2021,02/20/2021,02/08/2021,2020 Pneumococcal Conjugate Vacc, 13 Valent (Prevnar) 07/23/2020 Seasonal Influenza Virus Vac cine, Unspecified Formulation 08/25/2022,07/31/2021,08/10/2020,2018,09/03/2018,09/02/2017,10/03/2016,0 08/28/2015,08/15/2014 Seasonal Influenza, Quadriva lent Hd (Fluzone Hd) 08/28/2023,08/25/2022 Seasonal Influenza, Quadriva lent, No Preserve, IM 07/31/2021 TDAP (age 11 and older)(Adacel) 12/11/2016 documented as of this encounter Social History Tobacco Use Types Packs/Day Years Used Date Smoking Tobacco: Never Smokeless Tobacco: Never Alcohol Use Standard Drinks/Week Comments Yes 0 (1 standard drink = 0.6 oz pur e alcohol) occasionally PHQ-2 Answer Date Recorded PHQ Adult Total Score 0 08/25/2022 Sex and Gender Information Value Date Recorded Sex Assigned at Not on file Gender Identity Not on file Sexual Orientation Not on file Job Start Date Occupation Industry Not on file Not on file Not on file documented as of this encounter Miscellaneous Notes * Telephone Encounter - Jaclyn Jackson LPN - 04/15/2024 8:48 AM EDT Patient reports at least 90% improvement after L4/5 interlaminar epidural steroid injection on the right side. Tolerable. Will call as needed. documented in this encounter Plan of Treatment Upcoming Encounters Date Type Department Care Team (Late st Contact Info) Description 08/30/2024 7:40 AM EDT Laboratory Laboratory, [place] [address] [facility] [place] [id number] Mad[place] Mckenzie [address] [facility] [place] [address] 08/30/2024 8:45 AM EDT Office Visit Urology, [address] [place] [address] [place] Srivastava MD [address] [place] [address] [place] [address] 09/06/2024 8:00 AM EDT Office Visit [facility] [address] [place] [address] Liliane Armendariz MD [address] [place] [address] Health Maintenance Due Date Last Done Comments Hepatitis C Screening 1971 Cologuard 1998 Fecal Occult Blood Test 1998 Sigmoidoscopy 1998 Zoster Vaccines (1 of 2) 2003 Pneumococcal Vaccine: 65+ Years (2 of 2 - PPSV23 or PCV20) 07/23/2021 07/23/2020 *BASELINE EKG FOR HTN 12/09/2021 COVID-19 Vaccine ( season) 2023 03/23/2021, 02/20/2021, 02/08/2021, Additional history exists Depression Screening 08/25/2023 08/25/2022 GFR 08/28/2024 08/28/2023, 08/01, 07/15/2021 Albumin/Creatinine Ratio 08/25/2025 08/25/2022 DTaP,Tdap,and Td Vaccines (2 - Td or Tdap) 12/11/2026 12/11/2016 Lipid Panel 08/28/2028 08/28/2023, 08/01, 07/15/2021 Colonoscopy 03/10/2033 03/10/2023, 03/03/2022 Colorectal Cancer Screening 03/10/2033 Influenza Vaccine (FLU shot) Completed , 08/25/2022, 08/25/2022, Additional history exists GARDASIL-HPV IMMUNIZATION SERIES Aged Out No longer eligible based on patient's age to complete this topic Hepatitis B Aged Out No longer eligi ble based on patient's age to complete this topic MENINGOCOCCAL (MENACTRA/MENVEO) Aged Out No longer eligible based on patient's age to complete this topic documented as of this encounter Medical Devices Not on filedocumented as of this encounter Care Teams Gold Plater Relationship Specialty Start Date End Date Liliane Armendariz MD [address] [place] [address] PCP - General Family Medicine 08/23/21 documented as of this encounter
--- OUTSIDE RECORDS SUMMARY | 2024-05-31 20:50 | External Medical Summary | Summary of Care ---
Author Name Unknown Organization [facility] Address [address] [place] [address] Phone [phone] Care Team Providers Care Chemist Inorganic Name Role Phone Liliane Armendariz MD Primary Care Provid er Reason for Visit * Reason Onset Date Comments Follow Up 01/04/2024 Encounter Details Date Type Department Care Team (Late st Contact Info) Description 01/04/2024 Telephone Interventional Pain Center, [facility] [address] [place] [id number] Eric Mcbride DO [address] [place] [phone] Follow Up Allergies No known active allergiesdocumented as of this encounter (statuses as of 01/05/2024) Medications Medication Sig Dispensed Refills Start Date [...] EVERY DAY 90 Tablet 2 01/31/2023 Active Docusate Sodium 100 MG Oral Capsule (Colace) TAKE ONE CAPSULE BY MOUTH TWICE A DAY NEEDED FOR CONSTIPATION 60 Capsule 0 02/24/2023 Active Finasteride 5 MG Oral Tablet (Proscar) TAKE ONE TABLET BY MOUTH EVERY MORNING 90 Tablet 3 02/24/2023 4 Active Tamsulosin HCl 0.4 MG Oral Capsule (Flomax) TAKE ONE CAPSULE BY MOUTH EVERY MORNING 90 Capsule 3 02/24/2023 4 Active Pravastatin Sodium 20 MG Oral Tablet (Pravachol) TAKE ONE TABLET BY MOUTH EVERY DAY 90 Tablet 2 10/12/2023 4 Active Atenolol 50 MG Oral Tablet (Tenormin) [...] before bedtime. 5 mL 0 12/04/2023 Active Benzonatate 100 MG Oral CapsuleIndications:V iral URI with cough Take 2 Capsules by mouth 3 times a day as needed for Cough. 30 Capsule 1 12/04/2023 Active DULoxetine HCl 20 MG Oral Capsule Delayed Release Particles (Cymbalta) Take 1 Capsule by mouth in the morning. 90 Capsule 3 12/11/2023 Active documented as of this encounter (statuses as of 01/05/2024) Active Problems Problem Noted Date Diagnosed Date Claustrophobia 12/04/2023 Pulmonary nodules 08/28/2023 Sacroiliac joint pain 08/28/2023 BPH with obstruction/lower urinary tract symptom s 08/26/2023 HTN, goal below 140/90 08/23/2021 HLD (hyperlipidemia) 08/23/2021 Bilateral sciatica 08/23/2021 Foot-drop 04/27/2018 Spinal stenosis of lumbar region 04/27/2018 documented as of this encounter (statuses as of 01/05/2024) Immunizations Name Administration Dates Next Due COVID-19 [...] as of this encounter Miscellaneous Notes * Addendum Note - Eric Mcbride DO - 01/05/2024 3:41 PM ESTAddended by: ERIC MCBRIDE on: 01/05/2024 03:41 PM Modules accepted: Orders * Telephone Encounter - Leta Gould OSA - 01/04/2024 9:02 AM EST Patient previously reported 100% relief from his last injection. The pain is back in the same area and he would like another injection. No recent injuries or falls. documented in this encounter Plan of Treatment Upcoming Encounters Date Type Department Care Team (Late st Contact Info) Description 08/30/2024 7:40 AM EDT Laboratory Laboratory, [address] [place] [phone] [facility] [address] [place] [address] 08/30/2024 8:45 AM EDT Office Visit Urology, [facility] [address] [place] [address] [place] Srivastava MD [address] [place] [address] [place] [id number] 09/06/2024 8:00 AM EDT [facility] [place] [address] [facility] [phone] Liliane Armendariz MD [address] [place] [facility] [place] [address] Scheduled Orders Name Type Priority Associated Diagnoses Orde r Schedule INJECT DX/THER SUBSTANCE INTERLAMINAR LUMBAR/SACRAL W IMAGE GUIDE Procedures Routine Spinal stenosis of lumbar region without neurogenic claudication Lumbar radiculopathy Spinal stenosis of lumbar region with neurogenic claudication Expected: 01/06/2024, Expires: 04/04/2024 Health Maintenance Due Date Last Done Comments Hepatitis C Screening 1971 Cologuard 1998 Fecal Occult Blood Test 1998 Sigmoidoscopy 1998 Zoster Vaccines (1 of 2) 2003 Pneumococcal Vaccine: 65+ Years (2 - PPSV23 or PCV20) 07/23/2021 07/23/2020 *BASELINE EKG FOR HTN 12/09/2021 COVID-19 Vaccine ( - 2022- season) 2023 03/23/2021, 02/20/2021, 02/08/2021, Additional history [...] Not on filedocumented as of this encounter Visit Diagnoses Diagnosis Lumbar radiculopathy- Primary Thoracic or lumbosacral neuritis or radiculitis, unspecified Spinal stenosis of lumbar region without neurogenic claudication Spinal stenosis, lumbar region, without neurogenic claudication Spinal stenosis of lumbar region with neurogenic claudication Spinal stenosis, lumbar region, with neurogenic claudication documented in this encounter Care Teams Chemist Inorganic Relationship Specialty Start Date End Date Liliane Armendariz MD [address] [place] [facility] [place] [address] PCP - General Family Medicine 08/23/21 documented as of this encounter
--- OUTSIDE RECORDS SUMMARY | 2024-05-31 20:50 | External Medical Summary | Summary of Care ---
Author Name Unknown Organization [facility] Address [address] [place] [address] Phone [phone] Care Team Providers Care Venetian Blind Cleaner And Repairer Name Role Phone Liliane Armendariz MD Primary Care Provid er Reason for Visit * Reason Comments Acute Cough, watery eyes, sore throat x 4 days. Neg home covid test Encounter Details Date Type Department Care Team (Latest Contact Info) Description 12/04/2023 9:00 AM EST Office Visit [facility] [id number] [place] [address] March, Navin Villela MD [address] [place] [address] Conjunctivitis of both eyes, unspecified conjunctivitis type*; Viral URI with cough; HTN, goal below 140/90; Hyperlipidemia, unspecified hyperlipidemia type; Claustrophobia Allergies No known active allergiesdocumented as of this encounter (statuses as of 12/04/2023) Medications Medication Sig Dispensed Refills Start Date [...] EVERY DAY 90 Tablet 2 01/31/2023 Active DULoxetine HCl 20 MG Oral Capsule Delayed Release Particles (Cymbalta) Take 1 Capsule by mouth in the morning. 90 Capsule 1 06/03/2023 Active Docusate Sodium 100 MG Oral Capsule (Colace) TAKE ONE CAPSULE BY MOUTH TWICE A DAY NEEDED FOR CONSTIPATION 60 Capsule 0 02/24/2023 4 Active Finasteride 5 MG Oral Tablet (Proscar) [...] for Cough. 30 Capsule 1 12/04/2023 Active documented as of this encounter (statuses as of 12/04/2023) Active Problems Problem Noted Date Diagnosed Date Claustrophobia 12/04/2023 Pulmonary nodules 08/28/2023 Sacroiliac joint pain 08/28/2023 BPH with obstruction/lower urinary tract symptom s 08/26/2023 HTN, goal below 140/90 08/23/2021 HLD (hyperlipidemia) 08/23/2021 Bilateral sciatica 08/23/2021 Foot-drop 04/27/2018 Spinal stenosis of lumbar region 04/27/2018 documented as of this encounter (statuses as of 12/04/2023) Immunizations Name Administration Dates Next Due COVID-19 [...] on file documented as of this encounter Last Filed Vital Signs Vital Sign Reading Time Taken Comments Blood Pressure 122/80 12/04/2023 8:55 AM EST Pulse 53 12/04/2023 8:55 AM EST Temperature 36.5 C (97.7 F) 12/04/2023 8:55 AM ES T Respiratory Rate 18 12/04/2023 8:55 AM EST Oxygen Saturation 93% 12/04/2023 8:55 AM EST Inhaled Oxygen Concentration - - Weight 125.2 kg (276 lb) 12/04/2023 8:55 AM EST Height 185.4 cm (6' 1") 12/04/2023 8:55 AM EST Body Mass Index 36.41 12/04/2023 8:55 AM EST documented in this encounter Progress Notes * Navin Tubbs MD - 12/04/2023 9:16 AM EST Images from the original note were not included. Assessment and Plan Suspect viral illness. No role for viral testing at this point given he was COVID negative at home and past the point where Tamiflu would be beneficial. Recommend Coricidin HBP given hypertension. Also treat conjunctivitis with ofloxacin drops. No changes to blood pressure medicines today. Continue pravastatin for hyperlipidemia. 1. Conjunctivitis of both eyes, unspecified conjunctivitis type - Ofloxacin 0.3 % Ophthalmic Solution (Ocuflox); Instill 1 Drop into eye in the morning and 1 Drop at noon and 1 Drop in the evening and 1 Drop before bedtime. Dispense: 5 mL; Refill: 0 2. Viral URI with cough - Benzonatate 100 MG Oral Capsule; Take 2 Capsules by mouth 3 times a day as needed for Cough. Dispense: 30 Capsule; Refill: 1 3. HTN, goal below 140/90 4. Hyperlipidemia, unspecified hyperlipidemia type 5. Claustrophobia Wrap-Up Follow up as needed. History of Present Illness The patient is a 68 year old male with past medical history of HLD, HTN, BPH who presents for sick visit. Patient presents to discuss 5 days of illness. His main complaint is a mild sore throat and intermittent cough. He also has significant conjunctivitis bilaterally with watery eyes and crusting in themorning. Denies fevers. He has no shortness of breath. His appetite is reasonable and he is able tostay hydrated. He has not used any dfat-syj-ijqdome medicines to this point. He has a history of hypertension on chlorthalidone, atenolol, diltiazem. Blood pressure is at goal today 122/80. Rest of the vital signs are reasonable with oxygen somewhat borderline at 90 3%, however, he was not seem to be in any respiratory distress whatsoever and has clear lungs on exam. Physical Exam Vitals: 12/04/23 0855 Temp: 36.5 C (97.7 F) Pulse: 53 Resp: 18 SpO2: 93% BP: 122/80 BMI: 36.42 Physical Exam Physical Exam Vitals reviewed. Constitutional: General: He is not in acute distress. HENT: Right Ear: Tympanic membrane normal. There is no impacted cerumen. Left Ear: Tympanic membrane normal. There is no impacted cerumen. Mouth/Throat: Mouth: Mucous membranes are moist. Pharynx: Posterior oropharyngeal erythema present. No oropharyngeal exudate. Cardiovascular: Rate and Rhythm: Normal rate and regular rhythm. Heart sounds: No murmur heard. Pulmonary: Effort: Pulmonary effort is normal. No respiratory distress. Breath sounds: Normal breath sounds. No wheezing. Musculoskeletal: Cervical back: Neck supple. Lymphadenopathy: Cervical: No cervical adenopathy. Skin: General: Skin is warm and dry. Neurological: General: No focal deficit present. Mental Status: He is alert. documented in this encounter Nursing Notes * Tejal Pabon LPN - 12/04/2023 8:57 AM EST The patient has been properly identified by confirmation of name and date of . Chief Complaint Patient presents with Acute Cough, watery eyes, sore throat x 4 days. Neg home covid test documented in this encounter Plan of Treatment Upcoming Encounters Date Type Department Care Team (Late st Contact Info) Description 08/30/2024 7:40 AM EDT Laboratory Laboratory, [facility] [address] [place] [phone] [facility] Laboratory [facility] [place] [address] 08/30/2024 8:45 AM EDT Office Visit Urology, [facility] [address] [facility] [place] [address] [place] Srivastava MD 27 [facility] [address] [place] [address] 09/06/2024 8:00 AM EDT Office Visit [facility], [place] [address] [place] [phone] Liliane Armendariz MD [address] [place] [address] Health Maintenance Due Date Last Done Comments Hepatitis C Screening 1971 Cologuard 1998 Fecal Occult Blood Test 1998 Sigmoidoscopy 1998 Zoster Vaccines (1 of 2) 2003 Pneumococcal Vaccine: 65+ Years (2 - PPSV23 or PCV20) 07/23/2021 07/23/2020 *BASELINE EKG FOR HTN 12/09/2021 COVID-19 Vaccine ( - season) 2023 03/23/2021, 02/20/2021, 02/08/2021, Additional history [...] as of this encounter Visit Diagnoses Diagnosis Conjunctivitis of both eyes, unspecified conjunctivitis type- Primary Viral URI with cough Acute upper respiratory infections of unspecified site HTN, goal below 140/90 Unspecified essential hypertension Hyperlipidemia, unspecified hyperlipidemia type Claustrophobia Other isolated or specific phobias documented in this encounter Care Teams Venetian Blind Cleaner And Repairer Relationship Specialty Start Date End Date Liliane Armendariz MD [address] [place] [address] PCP - General Family Medicine 08/23/21 documented as of this encounter
--- OUTSIDE RECORDS SUMMARY | 2024-05-31 20:50 | External Medical Summary | Summary of Care ---
Author Name Unknown Organization [facility] Address [address] [place] [address] Phone [phone] Care Team Providers Care Services Engineer Name Role Phone Liliane Armendariz MD Primary Care Provid er Reason for Visit * Reason Comments Medication Refill Finasteride, tamsulo sin Encounter Details Date Type Department Care Team (Late st Contact Info) Description 01/30/2024 Refill Urology, [facility] 132 [facility] [place] [address] [place] Srivastava MD 27 [facility] [address] [place] [address] Allergies No known active allergiesdocumented as of this encounter (statuses as of 02/02/2024) Medications Medication Sig Dispensed Refills Start Date [...] NEEDED FOR CONSTIPATION 60 Capsule 0 02/24/2023 02/24/20 24 Active Pravastatin Sodium 20 MG Oral Tablet (Pravachol) TAKE ONE TABLET BY MOUTH EVERY DAY 90 Tablet 2 10/12/2023 10/11/20 24 Active Atenolol 50 MG Oral Tablet (Tenormin) TAKE ONE TABLET BY MOUTH IN THE MORNING 90 Tablet 2 10/12/2023 10/11/20 24 Active dilTIAZem HCl ER 300 MG Oral Tablet Extended Release 24 Hour TAKE ONE TABLET BY MOUTH EVERY DAY 90 Tablet 2 10/12/2023 10/11/20 24 Active Chlorthalidone 25 MG Oral Tablet (Hygroton) TAKE ONE TABLET BY MOUTH EVERY DAY 90 Tablet 3 10/28/2023 Active Ofloxacin 0.3 % Ophthalmic Solution (Ocuflox)Indication s:Conjunctivitis of both eyes, unspecified conjunctivitis type Instill 1 Drop into eye in the morning and 1 Drop at noon and 1 Drop in the evening and 1 Drop before bedtime. 5 mL 0 12/04/2023 Active Benzonatate 100 MG Oral CapsuleIndications: Viral URI with cough Take 2 Capsules by mouth 3 times a day as needed for Cough. 30 Capsule 1 12/04/2023 Active DULoxetine HCl 20 MG Oral Capsule Delayed Release Particles (Cymbalta) Take 1 Capsule by mouth in the morning. 90 Capsule 3 12/11/2023 Active Finasteride 5 MG Oral Tablet (Proscar) TAKE ONE TABLET BY MOUTH EVERY MORNING 90 Tablet 3 02/02/2024 02/02/20 25 Active Tamsulosin HCl 0.4 MG Oral Capsule (Flomax) TAKE ONE CAPSULE BY MOUTH EVERY MORNING 90 Capsule 3 02/02/2024 02/02/20 25 Active Finasteride 5 MG Oral Tablet (Proscar) TAKE ONE TABLET BY MOUTH EVERY MORNING 90 Tablet 3 02/24/2023 01/30/20 24 Discontinu ed(Refill) Tamsulosin HCl 0.4 MG Oral Capsule (Flomax) TAKE ONE CAPSULE BY MOUTH EVERY MORNING 90 Capsule 3 02/24/2023 01/30/20 24 Discontinu ed(Refill) documented as of this encounter (statuses as of 02/02/2024) Active Problems Problem Noted Date Diagnosed Date Claustrophobia 12/04/2023 Pulmonary nodules 08/28/2023 Sacroiliac joint pain 08/28/2023 BPH with obstruction/lower urinary tract symptom s 08/26/2023 HTN, goal below 140/90 08/23/2021 HLD (hyperlipidemia) 08/23/2021 Bilateral sciatica 08/23/2021 Foot-drop 04/27/2018 Spinal stenosis of lumbar region 04/27/2018 documented as of this encounter (statuses as of 02/02/2024) Immunizations Name Administration Dates Next Due COVID-19 [...] encounter Miscellaneous Notes * Telephone Encounter - Consuelo Hargrove PA-C - 02/02/2024 9:36 PM ESTSigned Prescriptions: Disp Refills Finasteride 5 MG Oral Tablet (Proscar) 90 Tab*3 Sig: TAKE ONE TABLET BY MOUTH EVERY MORNINGAuthorizing Provider: CONSUELO HARGROVE Tamsulosin HCl 0.4 MG Oral Capsule (Flomax)90 Cap*3 Sig: TAKE ONE CAPSULE BY MOUTH EVERY MORNINGAuthorizing Provider: CONSUELO HARGROVE * Telephone Encounter - Consuelo Hargrove PA-C - 02/02/2024 9:36 PM ESTSigned Prescriptions: Disp Refills Finasteride 5 MG Oral Tablet (Proscar) 90 Tab*3 Sig: TAKE ONE TABLET BY MOUTH EVERY MORNINGAuthorizing Provider: CONSUELO HARGROVE Tamsulosin HCl 0.4 MG Oral Capsule (Flomax)90 Cap*3 Sig: TAKE ONE CAPSULE BY MOUTH EVERY MORNINGAuthorizing Provider: CONSUELO HARGROVE * Telephone Encounter - Kaitlyn Kim LPN - 02/01/2024 8:22 AM EST Pending Prescriptions: Disp Refills Finasteride 5 MG Oral Tablet (Proscar) 90 Tab*3 Sig: TAKE ONE TABLET BY MOUTH EVERY MORNING Tamsulosin HCl 0.4 MG Oral Capsule (Flomax)90 Cap*3 Sig: TAKE ONE CAPSULE BY MOUTH EVERY MORNING * Telephone Encounter - Kaitlyn Kim LPN - 02/01/2024 8:21 AM EST Refill of finasteride and tamsulosin requested. Last appt: 08/26/2023 (in office), Visit date not found (telemedicine) Next appt: 08/30/2024 Review of patient's allergies indicates: No Known Allergies Thank you, Keri * Telephone Encounter - 01/30/2024 12:14 AM ESTPending Prescriptions: Disp Refills Finasteride 5 MG Oral Tablet (Proscar) 90 Tab*3 Sig: TAKE ONE TABLET BY MOUTH EVERY MORNING Tamsulosin HCl 0.4 MG Oral Capsule (Flomax)90 Cap*3 Sig: TAKE ONE CAPSULE BY MOUTH EVERY MORNING documented in this encounter Plan of Treatment Upcoming Encounters Date Type Department Care Team (Latest Contact Info) Description 03/18/2024 9:40 AM EDT Hospital Encounter OR [facility], Operating Room [facility] [address] [place] [phone] Brandin Mcbride, [address] [place] [phone] 03/18/2024 9:40 AM EDT - 03/18/2024 10:05 AM EDT Surgery OR [facility], Operating Room [facility] [address] [place] [phone] Brandin Mcbride DO [address] [place] [address] INJECTION SPINE LUMBAR OR [facility]CRAL 08/30/2024 7:40 AM EDT [facility] [place] [address] [facility] [phone] [place], Laboratory [address] [place] [facility] [place] [address] 08/30/2024 8:45 AM EDT Office Visit Urology, [facility] [address] [place] [address] [place] Srivastava MD [address] [place] [address] [place] [address] 09/06/2024 8:00 AM EDT Office Visit [facility] [address] [place] [phone] Liliane Armendariz MD [address] [place] [address] Scheduled Procedures Name Priority Associated Diagnoses Date/Ti me INJECTION SPINE LUMBAR OR SACRAL Lumbar radiculopathy 03/18/2024 9:40 AM EDT Health Maintenance Due Date Last Done Comments [...] filedocumented as of this encounter Care Teams Services Engineer Relationship Specialty Start Date End Date Liliane Armendariz MD [address] [facility] [place] [address] PCP - General Family Medicine 08/23/21 documented as of this encounter
--- OUTSIDE RECORDS SUMMARY | 2024-05-31 20:50 | External Medical Summary | Summary of Care ---
Author Name Unknown Organization [facility] Address [address] [place] [address] Phone [phone] Care Team Providers Care Construction Supervisor/Carpenter Name Role Phone Liliane Armendariz MD Primary Care Provid er Reason for Visit * Reason Onset Date Comments Follow Up 01/04/2024 Encounter Details Date Type Department Care Team (Late st Contact Info) Description 01/04/2024 Telephone Interventional Pain Center, [facility] [address] [place] [address] Brandin Mcbride DO [address] [place] [phone] Follow Up Allergies No known active allergiesdocumented as of this encounter (statuses as of 01/04/2024) Medications Medication Sig Dispensed Refills Start Date [...] as of this encounter (statuses as of 01/04/2024) Active Problems Problem Noted Date Diagnosed Date Claustrophobia 12/04/2023 Pulmonary nodules 08/28/2023 Sacroiliac joint pain 08/28/2023 BPH with obstruction/lower urinary tract symptom s 08/26/2023 HTN, goal below 140/90 08/23/2021 HLD (hyperlipidemia) 08/23/2021 Bilateral sciatica 08/23/2021 Foot-drop 04/27/2018 Spinal stenosis of lumbar region 04/27/2018 documented as of this encounter (statuses as of 01/04/2024) Immunizations Name Administration Dates Next Due COVID-19 [...] encounter Miscellaneous Notes * Telephone Encounter - Leta Gould OSA [...] Description 08/30/2024 7:40 AM EDT Laboratory Laboratory, [place] [address] [place] [facility] [place] [phone] [place], Laboratory [address] [place] [facility] [place] [address] 08/30/2024 8:45 AM EDT Office Visit Urology, [address] [place] [address] [place] Srivastava MD 27 [facility] [address] [place] [address] 09/06/2024 8:00 AM EDT Office Visit [facility] [address] [place] [phone] Liliane Armendariz MD [address], [place] [phone] Health Maintenance Due Date Last Done Comments [...] filedocumented as of this encounter Care Teams Construction Supervisor/Carpenter Relationship Specialty Start Date End Date Liliane Armendariz MD [address] [place] [address] PCP - General Family Medicine 08/23/21 documented as of this encounter
--- OUTSIDE RECORDS SUMMARY | 2024-05-31 20:50 | External Medical Summary | Summary of Care ---
Author Name Unknown Organization [facility] Address [address] [place] [address] Phone [phone] Care Team Providers Care Lure Maker Name Role Phone Liliane Armendariz MD Primary Care Provid er Reason for Visit * Reason Comments Medication Refill Encounter Details Date Type Department Care Team (Late st Contact Info) Description 12/11/2023 Refill Interventional Pain Center, [facility] [address] [place] [address] Eric Mcbride DO [address] [place] [phone] Allergies No known active allergiesdocumented as of this encounter (statuses as of 12/11/2023) Medications Medication Sig Dispensed Refills Start Date [...] 60 Capsule 0 02/24/2023 02/24/20 24 Active Finasteride 5 MG Oral Tablet (Proscar) TAKE ONE TABLET BY MOUTH EVERY MORNING 90 Tablet 3 02/24/2023 02/24/20 24 Active Tamsulosin HCl 0.4 MG Oral Capsule (Flomax) TAKE ONE CAPSULE BY MOUTH EVERY MORNING 90 Capsule 3 02/24/2023 02/24/20 24 Active Pravastatin Sodium 20 [...] the morning. 90 Capsule 3 12/11/2023 Active DULoxetine HCl 20 MG Oral Capsule Delayed Release Particles (Cymbalta) Take 1 Capsule by mouth in the morning. 90 Capsule 1 06/03/2023 12/11/19 24 Discontinu ed(Refill) documented as of this encounter (statuses as of 12/11/2023) Active Problems Problem Noted Date Diagnosed Date Claustrophobia 12/04/2023 Pulmonary nodules 08/28/2023 Sacroiliac joint pain 08/28/2023 BPH with obstruction/lower urinary tract symptom s 08/26/2023 HTN, goal below 140/90 08/23/2021 HLD (hyperlipidemia) 08/23/2021 Bilateral sciatica 08/23/2021 Foot-drop 04/27/2018 Spinal stenosis of lumbar region 04/27/2018 documented as of this encounter (statuses as of 12/11/2023) Immunizations Name Administration Dates Next Due COVID-19 [...] encounter Miscellaneous Notes * Telephone Encounter - Eric Mcbride DO - 12/11/2023 12:16 PM ESTSigned Prescriptions: Disp Refills DULoxetine HCl 20 MG Oral Capsule Delayed *90 Cap*3 Sig: Take 1 Capsule by mouth in the morning. Authorizing Provider: ERIC MCBRIDE * Telephone Encounter - Jaclyn Jackson LPN - 12/11/2023 8:44 AM ESTPending Prescriptions: Disp Refills DULoxetine HCl 20 MG Oral Capsule Delayed *90 Cap*1 Sig: Take 1Capsule by mouth in the morning. documented in this encounter Plan of Treatment Upcoming Encounters Date Type Department Care Team (Late st Contact Info) Description 08/30/2024 7:40 AM EDT Laboratory Laboratory, [place] [address] [place] [address] [place], Laboratory [address] [place] [address] 08/30/2024 8:45 AM EDT Office Visit Urology, [facility] [address] [facility] [place] [address] [place] Srivastava MD 27 [facility] [address] [place] [address] 09/06/2024 8:00 AM EDT Office Visit Family Practice, [place] [address] [place] [address] Liliane Armendariz MD [address] [place], [place] [phone] Health Maintenance Due Date Last Done Comments [...] filedocumented as of this encounter Care Teams Lure Maker Relationship Specialty Start Date End Date Liliane Armendariz MD [address] [place] [address] PCP - General Family Medicine 08/23/21 documented as of this encounter
--- OUTSIDE RECORDS SUMMARY | 2024-05-31 20:50 | External Medical Summary | Summary of Care ---
Author Name Unknown Organization [facility] Address [address] [place] [address] Phone [phone] Care Team Providers Care Artificial Flowers Starcher Name Role Phone Liliane Armendariz MD Primary Care Provid er Reason for Visit * Reason Onset Date Comments Med Request 05/30/2024 Encounter Details Date Type Department Care Team (Late st Contact Info) Description 05/30/2024 Telephone [facility] [address] [place] [address] Liliane Armendariz MD [address] [place] [address] Med Request Allergies No known active allergiesdocumented as of this encounter (statuses as of 05/30/2024) Medications Medication Sig Dispensed Refills Start Date End Date Status Fish Oil 1000 MG Oral Capsule Take 1 Capsule by mouth in the morning. Active Aspirin 81 MG Oral Tablet Delayed Release Take 1 Tablet by mouth in the morning. Active Fiber Diet Oral Tablet Take by mouth. Active dilTIAZem HCl ER Coated Beads 300 [...] and 1 Drop before bedtime. 5 mL 12/04/2023 Active Additional Information Patient not taking.Reported [...] MORNING 90 Capsule 3 02/02/2024 5 Active Diclofenac Sodium 75 MG Oral Tablet Delayed Release (Voltaren)Indication s:Bilateral sciatica Take 1 Tablet by mouth in the morning and 1 Tablet before bedtime. With food.. 20 Tablet 3 05/30/2024 Active documented as of this encounter (statuses as of 05/30/2024) Active Problems Problem Noted Date Diagnosed Date Claustrophobia 12/04/2023 Pulmonary nodules 08/28/2023 Sacroiliac joint pain 08/28/2023 BPH with obstruction/lower urinary tract symptom s 08/26/2023 HTN, goal below 140/90 08/23/2021 HLD (hyperlipidemia) 08/23/2021 Bilateral sciatica 08/23/2021 Foot-drop 04/27/2018 Spinal stenosis of lumbar region 04/27/2018 documented as of this encounter (statuses as of 05/30/2024) Immunizations Name Administration Dates Next Due COVID-19 mRNA, LNP-s, No Pre serve, 2-Dose Series (Moderna) 03/23/2021,02/20/2021,02/08/2021,2020 Pneumococcal Conjugate Vacc, 13 Valent (Prevnar) 07/23/2020 Seasonal Influenza Virus Vac cine, Unspecified Formulation 08/25/2022,07/31/2021,08/10/2020,2018,09/03/2018,09/02/2017,10/03/2016,0 08/28/2015,08/15/2014 Seasonal Influenza, Quadriva lent Hd (Fluzone Hd) 08/28/2023,08/25/2022 Seasonal Influenza, Quadriva lent, No Preserve, IM 07/31/2021 TDAP, Age 7 and older, IM (Adacel) 12/11/2016 documented as of this encounter Social History Tobacco Use Types Packs/Day Years Used Date Smoking Tobacco: Never Smokeless Tobacco: Never Alcohol Use Standard Drinks/Week Comments Yes 0 (1 standard drink = 0.6 oz pur e alcohol) occasionally PHQ-2 Answer Date Recorded PHQ Adult Total Score 0 08/25/2022 Utilities Answer Date Recorded Do you have trouble paying y our heating, water, or electric bill? (Adult - for ages 18 years and over) Not on file 05/17/2024 Is your family able to pay t he heat, water, or electric bill? (Household - for ages 0-17 years) Not on file 05/17/2024 Does your family have access to good internet? (Household - for ages 0-17 years) Not on file 05/17/2024 Social Connections Answer Date Recorded How often do you feel lonely or isolated from those around you? (Adult - for ages 18 years and over) Not on file 05/17/2024 Sex and Gender Information Value Date Recorded Sex Assigned at Not on file Gender Identity Not on file Sexual Orientation Not on file Job Start Date Occupation Industry Not on file Not on file Not on file documented as of this encounter Miscellaneous Notes * Telephone Encounter - Bethany Christopher DO - 05/30/2024 2:11 PM EDT Medication sent to the pharmacy * Telephone Encounter - Ramakrishna Baez MED ASSIST - 05/30/2024 9:37 AM EDT Please advise * Telephone Encounter - Iva Garcia PHARM Tech - 05/30/2024 8:45 AM EDT Patient called in stating that he is flying to his sons house in [place] tomorrow and has a lot of issues with his back when he fly's. He is asking if the doctor can send him in something to help with this for the ride out and the ride back. Please call patient when complete Thank you, Iva Garcia Metal Framer [facility] 05/30/2024,8:45 AM documented in this encounter Plan of Treatment Upcoming Encounters Date Type Department Care Team (Late st Contact Info) Description 08/30/2024 7:40 AM EDT Laboratory Laboratory, [place] [address] [place] [address] [facility] [address] [place] [address] 08/30/2024 8:45 AM EDT Office Visit Urology, [facility] [address] [facility] [place] [address] [place] Srivastava MD [address] [place] [address] 09/06/2024 8:00 AM EDT Office Visit [facility] [place] [address] [facility] [id number] Liliane Armendariz MD [address] [place] [address] Health Maintenance Due Date Last Done Comments Hepatitis C Screening 1971 Cologuard 1998 Fecal Occult Blood Test 1998 Sigmoidoscopy 1998 Zoster Vaccines (1 of 2) 2003 Pneumococcal Vaccine: 65+ Years (2 of 2 - PPSV23 or PCV20) 07/23/2021 07/23/2020 *BASELINE EKG FOR HTN 12/09/2021 COVID-19 Vaccine ( - season) 2023 03/23/2021, 02/20/2021, 02/08/2021, Additional history exists Depression Screening 08/25/2023 08/25/2022 Influenza Vaccine (FLU shot) (#1) 2024 08/28/2023, 08/25/2022, 08/25/2022, Additional history exists GFR 08/28/2024 08/28/2023, 08/01, 07/15/2021 Albumin/Creatinine Ratio 08/25/2025 08/25/2022 DTaP,Tdap,and Td Vaccines (2 - Td or Tdap) 12/11/2026 12/11/2016 Lipid Panel 08/28/2028 08/28/2023, 08/01, 07/15/2021 Colonoscopy 03/10/2033 03/10/2023, 03/03/2022 Colorectal Cancer Screening 03/10/2033 GARDASIL-HPV IMMUNIZATION SERIES Aged Out No longer [...] as of this encounter Visit Diagnoses Diagnosis Bilateral sciatica- Primary Sciatica documented in this encounter Care Teams Artificial Flowers Starcher Relationship Specialty Start Date End Date Liliane Armendariz MD [address] [place] [address] PCP - General Family Medicine 08/23/21 documented as of this encounter
--- OUTSIDE RECORDS SUMMARY | 2024-05-31 20:50 | External Medical Summary | Summary of Care ---
Author Name Unknown Organization [facility] Address [address] [facility] [place] [address] Phone [phone] Care Team Providers Care Senior Construction Estimator Name Role Phone Liliane Armendariz MD Primary Care Provid er Reason for Visit * Auth/Cert Specialty Diagnoses / Procedures Referred By Cornellac t Referred To Contact Diagnoses Lumbar radiculopathy Lumbar radiculopathy [M54.16] Procedures INJECT DX/THER SUBSTANCE INTERLAMINAR LUMBAR/SACRAL W IMAGE GUIDE INJECTION SPINE LUMBAR OR SACRAL Brandin Mcbride DO [address] [place] [address] [facility] [address] [place] [address] Referral ID Status Reason Start Date Expiration Date Visits Re quested Visits Authorized [id number] Encounter Details Date Type Department Care Team (Latest Contact Info) Description 03/18/2024 9:09 AM EDT - 03/18/2024 10:09 AM EDT Hospital Encounter OR [facility], Operating Room [facility] [address] [place] [address] Brandin Mcbride DO [address] [place] [address] Discharge Disposition: Home - Self Care Allergies No known active allergiesdocumented as of this encounter (statuses as of 03/18/2024) Medications Medication Sig Dispensed Refills Start Date [...] as of this encounter (statuses as of 03/18/2024) Active Problems Problem Noted Date Diagnosed Date Claustrophobia 12/04/2023 Pulmonary nodules 08/28/2023 Sacroiliac joint pain 08/28/2023 BPH with obstruction/lower urinary tract symptom s 08/26/2023 HTN, goal below 140/90 08/23/2021 HLD (hyperlipidemia) 08/23/2021 Bilateral sciatica 08/23/2021 Foot-drop 04/27/2018 Spinal stenosis of lumbar region 04/27/2018 documented as of this encounter (statuses as of 03/18/2024) Immunizations Name Administration Dates Next Due COVID-19 [...] Sign Reading Time Taken Comments Blood Pressure 139/76 03/18/2024 10:04 AM EDT Pulse 54 03/18/2024 10:04 AM EDT Temperature 36 C (96.8 F) 03/18/2024 9:29 AM EDT Respiratory Rate 16 03/18/2024 10:04 AM EDT Oxygen Saturation 95% 03/18/2024 10:04 AM EDT Inhaled Oxygen Concentration - - Weight - - Height - - Body Mass Index - - documented in this encounter Discharge Instructions * Discharge Instr - AVS* Brandin Mcbride DO - 03/18/2024 10:02 AM EDT [facility] [address] [place], [place] [address] Discharge Date: 03/18/2024 You may call [facility] at [phone] during business hours. For after-hours emergencies call 911. Your attending physician at the time of your discharge was: Brandin Mcbride DO [address] [place] [address] The information below provides you with the instructions and the list of medications you need to betaking following discharge from the hospital. If you have any questions, please ask before leaving.Please carry this letter with you when you see your doctor in the clinic. Diet: Resume your normal diet If you are diabetic, follow your blood sugars closely for next 2-3 days as they are likely to be elevated. If you are having difficulty controlling your blood sugars call your family doctor or the physician that treats your diabetes. Activity: Do not engage in strenuous activity today Resume your normal activities tomorrow Do not soak in water for 24 hours. No swimming, hot tub or bath but showering is allowed. Do not use heat on the injection site for 24 hours. If uncomfortable ice may be helpful. Some injections may make your arms or legs weak for a few hours. Be extremely careful when walking or changing positions that you do not fall. Have someone assist you for the next 6 hours. If weakness or numbness becomes progressive CALL IMMEDIATELY or GO TO THE NEAREST EMERGENCY ROOM Keep a diary of your pain until seen in the office to help us determine how effective the injectionwas Do not restart physical therapy or chiropractic manipulation until 48 hours after your injection Call : If weakness or numbness suddenly becomes worse or become progressive If the injection site becomes red, swollen, warm to the touch, begins to bleed or drain fluid, or is excessively painful. If you have any questions Medications: Resume all the medications you were taking prior to your injection. Resume your anticoagulants tomorrow unless otherwise instructed by your family physician, retail sales clerk or the anticoagulation clinic. Additional Instructions: None Driving: You may resume driving in 12-24 hours if no weakness is noted . Date you may return to work or school: N/A Follow Up: Please make a follow-up telephone appointment with our nursing staff in 4-6 weeks. documented in this encounter Progress Notes * Brandin Mcbride DO - 03/18/2024 10:02 AM EDT [facility] [place] [address] [facility] [address] OUTPATIENT SURGERY DISCHARGE SUMMARY NOTE Name: Jonathan Miranda Jr. Location: OR [facility] Date: 03/18/2024 Time: 10:02 AM Surgery Date: 03/18/2024 Procedure: INJECTION SPINE LUMBAR OR SACRAL No laterality found for procedure #1 Surgeon: Brandin Mcbride DO Discharge Diagnosis: lumbar radicular pain, spinal stenosis After examination of this patient, I have determined he is ready for discharge to home when the patient meets criteria. Discharge instructions were given to the patient. Brandin Mcbrdie DO OR [facility], Operating Room [facility] [address] [place] [address] documented in this encounter H&P Notes * Brandin Mcbride DO - 03/18/2024 9:39 AM EDT Interventional Pain H&P Subjective: History of Present Illness: Jonathan Miranda Jr. is a 69 year old year-old male with a past medical history significant for lumbar radicular pain who is presenting for L3/4 FRANCISCO (may change level) to improve his pain and function.his pain is essentially unchanged since our last office visit with him. ASA 3 AW nml Review of Systems: A focused 12-pt ROS were of reviewed with the patient including difficulty with sleep, snoring, aspiration history, dysphagia, stomach pain, nausea and vomiting, severe headaches, confusion, open skin lesions or wounds, chest pain, shortness of breath, excessive thirst, somnolence, dysuria, incomplete bladder emptying, easy bruising, recent clotting problems or bleeding, depression or rushed thoughts unless noted previously. Review of patient's allergies indicates: No Known Allergies Medications, Past Medical History, Past Surgical History reviewed and documented in Epic. See detailed report if needed. Pertinent Labs/Test Results: No results found for: "INR" No results found for: "CREATININE" HEMOGLOBIN, [id number] LAB (%) Date Value 07/15/2021 5.1 No results found for: "AMPHETAMINE", "BARBITURATES", "BENZODIAZEPINES", "BUPRENORPHINE", "METHADONE", "OPIATES", "OXYCODONE", "PHENCYCLIDINE", "CANNABINOIDS", "TOX SCREEN", "URINE", "TOX SCREEN-SERUM", "TOX SCREEN, URINE" Imaging: I personally reviewed the imaging and my findings were . FLUORO INTERVENTIONAL PAIN PROCEDURE NONBILLABLE This procedure will not be read by a Radiologist. Please see operative note. Objective Physical Exam: Vital Signs: BP 144/77 | Pulse 54 | Temp 36 C (96.8 F) (Tympanic) | Resp 16 | SpO2 95% There isno height or weight on file to calculate BMI. General: No apparent distress. Eyes: pupils equal and round, sclera white, pupils midsize. ENT: mucous membranes moist Resp: Non-labored breathing CV: Extremities warm and well-perfused. Psych: Oriented; affect warm, insight good. Skin: No rashes or lesions appreciated on exposed skin Neuromuscular Exam: Facet loading neg, SLR pos, TTT over lumbar spine Assessment: Jonathan is a 69 year old year-old male with: Lumbar radicular pain Plan: The patient is undergoing repeat L3/4 FRANCISCO (may change level) today to alleviate his pain and improve his function. The risks, benefits and alternatives to the procedure were reviewed at length and the patient was provided the opportunity to ask questions which were answered to their voiced understanding. Following this comprehensive discussion, the patient opted to proceed. The patient was consented to the procedure following this comprehensive conversation. Brandin Mcbride DO OR [facility], Operating Room [facility] [address] [facility] [place] [address] documented in this encounter Nursing Notes * Siri Schroeder RN - 03/18/2024 10:08 AM EDT Visited by Dr Mcbride. Verbalized understanding of discharge directions. Ready for discharge to home. * Radha Oliva RN - 03/18/2024 10:02 AM EDT Patient tolerated pain injection well. Pt to post op via w/c. documented in this encounter OR Notes * OR Surgeon - Brandin Mcbride DO - 03/18/2024 10:02 AM EDT INTERLAMINAR LUMBAR EPIDURAL STEROID INJECTION DATE: 03/18/2024 PHYSICIAN: Brandin Mcbride DO PREOPERATIVE DIAGNOSIS: Lumbar spondylosis with lumbar radiculopathy. POSTOPERATIVE DIAGNOSIS: Lumbar spondylosis with lumbar radiculopathy. PROCEDURE PERFORMED: L4/5 interlaminar epidural steroid injection on the right side. Fluoroscopy for precise needle placement. ANESTHESIA: Local infiltration with 1% lidocaine. MONITORS: Automatic blood pressure cuff, pulse oximetry. There was no insurance sales assistant, EBL or drains placed during this procedure. INDICATIONS: I had the pleasure of seeing Jonathan Miranda Jr. ([id number]) in the pain management clinic at [facility] today. Jonathan Miranda Jr. is a 69 year old year-old male has a history of lumbar radiculopathy. he is here today for an interlaminar lumbar epidural steroid injection today. MEDICATIONS: No current facility-administered medications for this encounter. ALLERGIES: Review of patient's allergies indicates: No Known Allergies REVIEW OF SYSTEMS: Negative for fever, chills, chest pain, SOB, bleeding abnormalities, nausea, vomiting, diarrhea, worsening edema, or new rashes. FOCUSED PHYSICAL EXAMINATION: The patient is awake, alert and oriented, and is in no acute distress. Vital signs are stable. The patient is afebrile. The rest of the PE is essentially unchanged from the patient's recent visit to our office. I explained the procedure to the patient including the risks, benefits and alternatives to the procedure. The risks discussed with the patient included but were not limited to: bleeding, infection, and damage to surrounding nerves, tissues, and organs, paralysis, increased pain, pain at the site ofinjection, allergic reaction, blood pressure instability, seizures, heart block, headaches, increase in blood sugar, worsening of glaucoma, blindness, manic episodes, mood instability, . Alternatives to the procedure were also explained and include: do nothing, surgery, medications, and physical therapy. The patient verbalized understanding and was willing to proceed. PROCEDURE IN DETAIL: An informed consent was obtained. The patient was taken to the procedure room,was positively identified by the staff and attending physician. The patient was positioned prone onthe procedure bed. Vital signs were monitored as above and remained stable throughout the procedure. The skin was prepped and draped in a standard sterile fashion. A surgical pause time-out was performed and agreed upon by the members of the team. Fluoroscopic view of the lumbar spine was obtained and the area of interest was identified. The skin and subcutaneous tissues were anesthetized using 1% lidocaine and 25-gauge 1-1/2 inch needle. After that, a 20-gauge, 3.5-inch epidural needle was advanced towards the L4/5 interlaminar window in the right paramedian position. AP, contralateral oblique and lateral views were used to assess appropriate needle position. Loss of resistance to air technique was utilized and was obtained at 8 cmfrom the skin. The needle's position was additionally verified by injecting radiopaque dye, which showed spread of the dye in the epidural space in AP and lateral views. After negative aspiration forCSF and blood, 80 mg of Kenalog diluted in 2 mL of 1% lidocaine and 1mL of sterile preservative free normal saline was injected into the epidural space. The needle was withdrawn. The patient tolerated the procedure well. COMPLICATIONS: None. DISPOSITION: 1. Return to clinic in 1-2 months for follow-up evaluation, sooner as needed. 2. Resume activity as tolerated. 3. Patient can drive after 12-24 hours if no weakness noted. Brandin Mcbride DO OR [facility], Operating Room [address] [place] [address] documented in this encounter Plan of Treatment Upcoming Encounters Date Type Department Care Team (Late st Contact Info) Description 04/15/2024 11:00 AM EDT Scheduled Telephone Interventional Pain Center, [facility] [address] [facility] [place] [address] [place] Nurse Phone Call Interventional Pain [facility] [address] [facility] [place] [address] 08/30/2024 7:40 AM EDT Laboratory Laboratory, [place] [address] [place] [address] [facility] [address], [place] [id number] 08/30/2024 8:45 AM EDT Office Visit Urology, [facility] [address] [place] [address] [place] Srivastava MD [address] [facility] [address] [facility] [place] [address] 09/06/2024 8:00 AM EDT Office Visit Family Practice, [place] [address] [place] [facility] [place] [address] Liliane Armendariz MD [address] [place], [place] [id number] Scheduled Procedures Name Priority Associated Diagnoses Date/Ti me INJECTION SPINE LUMBAR OR SACRAL Lumbar radiculopathy 03/18/2024 9:48 AM EDT Health Maintenance Due Date Last [...] Not on filedocumented as of this encounter Procedures Procedure Name Priority Date/Time Associated Diagnosis Comments FLUORO INTERVENTIONAL PAIN PROCEDURE NONBILLABLE Routine 03/18/2024 10:06 AM EDT documented in this encounter Results * FLUORO INTERVENTIONAL PAIN PROCEDURE NONBILLABLE (03/18/2024 10:06 AM EDT) Narrative Scheduling, Silent - 03/18/2024 10:06 AM EDT This procedure will not be read by a Radiologist. Please see operative note. Brandin Mcbride DO RAD FLUOROSCOPY documented in this encounter Administered Medications Inactive Administered Medications - up to 3 most recent administrations Medication Order MAR Action Action Date Dose Rate Site Iohexol (Omnipaque 180) inj 1 mL 1 mL, Intravenous, ONCE, On Thu03/18/24 at 1000, For 1 dose Given 03/18/2024 9:59 AM EDT 1.5 mL lidocaine 1 % inj 20 mg 20 mg (2 mL), Subcutaneous, ONCE, On Thu03/18/24 at 1000, For 1 dose Given 03/18/2024 9:54 AM EDT 5 mL Other -Specify Triamcinolone Acetonide (Kenalog) 40 MG/ML inj 40 mg 40 mg, Injection, ONCE, On Thu03/18/24 at 1000, For 1 dose Given 03/18/2024 10:00 AM EDT 80 mg documented in this encounter Active and Recently Administered Medications Times are shown in EDT. Scheduled Medication Order 03/16/2024 03/17/2024 03/18/2024 Iohexol (Omnipaque 180) inj 1 mL (COMPLETED) 1 mL, Intravenous, ONCE, On Thu03/18/24 at 1000, For 1 dose 0959 (Given - Provid er: Radha Oliva RN) lidocaine 1 % inj 20 mg (COMPLETED) 20 mg (2 mL), Subcutaneous, ONCE, On Thu03/18/24 at 1000, For 1 dose 0954 (Given - Provid er: Radha Oliva RN) Triamcinolone Acetonide (Kenalog) 40 MG/ML inj 40 mg (COMPLETED) 40 mg, Injection, ONCE, On Thu03/18/24 at 1000, For 1 dose 1000 (Given - Provid er: Radha Oliva RN) documented in this encounter Care Teams Senior Construction Estimator Relationship Specialty Start Date End Date Liliane Armendariz MD [address] [place] [facility] [place] [address] PCP - General Family Medicine 08/23/21 documented as of this encounter
[2024-06-01] MEDS: TAMSULOSIN HCL 0.4 MG CAP PO SCH (08:45)
[2024-06-01] MEDS: CHLORTHALIDONE 25 MG TAB PO SCH (08:45)
[2024-06-01] MEDS: ATENOLOL 50 MG TABLET PO SCH (08:45)
[2024-06-01] MEDS: dilTIAZem HCL 300 MG CAPCR PO SCH (08:45)
[2024-06-01] MEDS: PSYLLIUM or GUAR GUM FIBER 4GM PACKET PO SCH (08:45)
[2024-06-01] MEDS: FINASTERIDE 5 MG TAB PO SCH (08:45)
[2024-06-01 08:48] LABS: Hematocrit (blood only) 37.9 % (42.0-52.0); Hemoglobin 13.3 g/dl (14.0-18.0); Mean Corpuscular Hemoglobin 30.1 pg (25.0-34.0); Mean Corpuscular Hgb Conc 35.1 g/dL (32.0-36.0); Mean Corpuscular Volume 85.7 fL (80.0-100.0); Mean Platelet Volume 11.6 fL (9.4-12.4); Platelet Count 68 K/uL (130-400); RDW Coefficient of Variation 12.5 % (11.5-14.5); RDW Standard Deviation 39.3 fL (36.4-46.3); Red Blood Count 4.42 M/uL (4.70-6.10); White Blood Count 1.73 K/ul (4.8-10.8)
[2024-06-01 08:55] LABS: Anion Gap 6 (3-11); BUN Creatinine Ratio 20.3 (10-20); Blood Urea Nitrogen 14 mg/dl (6-23); Calcium 7.9 mg/dl (8.6-10.3); Carbon Dioxide 30 mmol/L (21-32); Chloride 99 mmol/L (98-107); Creatinine Clr Calc Pharmacy 131.3 ml/min; Est GFR (African American) 110.7 ml/min; Est GFR (Non-African American) 95.5 ml/min; Glucose 100 mg/dl (70-99(Fasting)); Magnesium 1.9 mg/dl (1.7-2.4); Sodium 135 mmol/L (136-145)
[2024-06-01] MEDS: cefTRIAXone SODIUM 2,000 MG/50 ML BAG IV SCH (10:10)
[2024-06-01] MEDS: POTASSIUM CHLORIDE CRTAB 20 MEQ TABCR PO SCH (11:18)
[2024-06-01] MEDS: POTASSIUM CHLORIDE / WTR 10 MEQ/100 ML PLCT IV SCH (11:18)
--- OUTSIDE RECORDS SUMMARY | 2024-06-01 12:27 | External Medical Summary | Summary of Care ---
Author Name Unknown Organization [facility] Address [address] [place] [address] Phone [phone] Care Team Providers Care Shovel Oiler Name Role Phone Liliane Armendariz MD Primary Care Provid er Reason for Visit * Reason Onset Date Comments Med Request 05/30/2024 Encounter Details Date Type Department Care Team (Late st Contact Info) Description 05/30/2024 Telephone [facility] [address] [place] [address] Liliane Armendariz MD [address] [place] [address] Med Request Allergies No known active allergiesdocumented as of this encounter (statuses as of 05/31/2024) Medications Medication Sig Dispensed Refills Start Date [...] as of this encounter (statuses as of 05/31/2024) Active Problems Problem Noted Date Diagnosed Date Claustrophobia 12/04/2023 Pulmonary nodules 08/28/2023 Sacroiliac joint pain 08/28/2023 BPH with obstruction/lower urinary tract symptom s 08/26/2023 HTN, goal below 140/90 08/23/2021 HLD (hyperlipidemia) 08/23/2021 Bilateral sciatica 08/23/2021 Foot-drop 04/27/2018 Spinal stenosis of lumbar region 04/27/2018 documented as of this encounter (statuses as of 05/31/2024) Immunizations Name Administration Dates Next Due COVID-19 [...] encounter Miscellaneous Notes * Telephone Encounter - Alexa VelozMARI - 05/31/2024 10:14 AM EDT I left a message on the patients home VM to return our call. I did also leave a VM on his identified mobile phone number that medication was sent to the pharmacy for him. * Telephone Encounter - Bethany Christopher DO - 05/30/2024 2:11 PM EDT Medication sent to the pharmacy * Telephone Encounter - Ramakrishna Baez MED ASSIST - 05/30/2024 9:37 AM EDT Please advise * Telephone Encounter - Iva Garcia PHARM Tech - 05/30/2024 8:45 AM EDT Patient called in stating that he is flying to his sons house in [place] tomorrow and has a lot of issues with his back when he fly's. He is asking if the doctor can send him in something to help with this for the ride out and the ride back. Please call patient when complete Thank you, Iva Garcia Toll Gate Tender I [facility] 05/30/2024,8:45 AM documented in this encounter Plan of Treatment Upcoming Encounters Date Type Department Care Team (Late st Contact Info) Description 08/30/2024 7:40 AM EDT [facility], [place] [address] [facility] [id number] [place], Laboratory [address] [place] [address] 08/30/2024 8:45 AM EDT Office Visit Urology, [facility] [address] [facility] [place] [address] [place] Srivastava MD [address] [place] [address] 09/06/2024 8:00 AM EDT Office Visit [facility], [place] [address] [place] [facility] [place] [address] Liliane Armendariz MD [address] [place] [address] Health Maintenance Due Date Last Done [...] Sciatica documented in this encounter Care Teams Shovel Oiler Relationship Specialty Start Date End Date Liliane Armendariz MD [address] [place] [address] PCP - General Family Medicine 08/23/21 documented as of this encounter
--- NOTE | 2024-06-01 16:39 | Hospitalist Progress Note ---
Date of Service June 01, 2024 Assessment & Plan (1) Lyme borreliosis: (2) Electrolyte and fluid disorder: (3) Hypertension: (4) HLD (hyperlipidemia): (5) Left foot drop: (6) Constipation: Plan Mr. Miranda is a 69 year old gentleman with a PMHX significant for HLD, HTN, BPH and severe left sided sciatica with left foot drop in brace who is admitted for management of multiple electrolyte abnormalities. Patient found to be lyme positive and started on CTX/doxy. Patient reports "dogsitting" recently and that the dog may have been the source for tick at home, otherwise patient does not recall recent bite or outdoor activity. Labs with progressive pancytopenia; however, patient with subjective improvement. #Pancytopenia likely 2/2 lyme infection, no recent treatments resulting in immunocompromised status -Repeat CBC with diff in am haptoglobin, ldh, retic, fe starks, ferritin, b12, folate in am #Lyme borreliosis IgG +lyme Continue CTX and doxycycline #Multiple electrolyte abnormalities hyponatremia, hypokalemia Improving with po intake PO K and IV replacement Repeat bmp this afternoon and am #Relative Hypotension #Hypertension Hold Diltazem in am, BP in 90s, asymptomatic hold chlorthalidone 2/2 electrolyte abnormalities Continue atenolol # HLD (hyperlipidemia): Continue pravastatin #Chronic Left foot drop: Continue using brace PT and OT consult #Constipation: Continue Colace and MiraLAX DVT px SCDs Dispo 1-2 days contingent on recovery of CBC Admission and Anticipated Discharge Date Admission Date: May 31, 2024 Subjective NAEO Reports overall subjective improvement and return of appetite denies further fevers or concerns Physical Exam Constitutional: WD/WN, vitals as above Respiratory: normal respiratory effort, lungs clear to auscultation Cardiovascular: RRR, no murmur, no edema Gastrointestinal (Abdomen): normal bowel sounds, soft, nontender, no hepatosplenomegaly Musculoskeletal: strength 5/5 all extremities except 0/5 for left foot dorsiflexion Results & Data Results & Data Vital Signs (Past 12 Hours) Vital Signs Temp Pulse Pulse Resp BP Pulse Ox O2 Del Method 06/01/24 15:24 37.0 C 61 17 92/54 L 93 Room Air 06/01/24 13:47 57 L 06/01/24 10:24 36.3 C L 74 17 108/63 95 Room Air 06/01/24 09:00 Room Air 06/01/24 08:43 70 06/01/24 07:37 36.7 C 54 L 20 119/62 93 Room Air 06/01/24 07:27 56 L Laboratory Results Short CBC 06/01/24 Range/Units 08:22 WBC 1.73 L (4.8-10.8) K/ul Hgb 13.3 L (14.0-18.0) g/dl Hct 37.9 L (42.0-52.0) % Plt Count 68 L (130-400) K/uL BMP 05/31/24 06/01/24 06/01/24 17:00 08:22 09:15 Sodium 133 L 135 L Potassium 2.6 L TNP 2.8 L Chloride 95 L 99 Carbon Dioxide 32 30 BUN 14 14 Creatinine 0.83 0.69 Glucose 96 100 H Calcium 8.2 L 7.9 L Medications Administered Home Medications Medication Instructions Recorded Confirmed Last Taken aspirin 81 mg tablet,delayed 81 mg PO 09/22/18 05/31/24 05/30/24 release chlorthalidone 25 mg tablet 25 mg PO [facility] 09/22/18 05/31/24 05/30/24 diltiazem HCl 300 mg 300 mg PO [facility] 09/22/18 05/31/24 05/30/24 tablet,extended release 24 hr atenolol 50 mg tablet 50 mg PO [facility] 01/18/21 05/31/24 05/30/24 docusate sodium 100 mg capsule 100 mg PO DAILY PRN Constipation 01/18/21 05/31/24 01/26/21 omega-3 fatty acids 1,000 mg PO 01/18/21 05/31/24 05/30/24 pravastatin 20 mg tablet 20 mg PO 01/18/21 05/31/24 05/30/24 psyllium husk 3.4 gram/5.4 gram 1 tbsp PO [facility] 01/18/21 05/31/24 05/30/24 oral powder (Metamucil) finasteride 5 mg tablet 5 mg PO [facility] 03/02/23 05/31/24 05/30/24 tamsulosin 0.4 mg capsule 0.4 mg PO [facility] 03/02/23 05/31/24 05/30/24 Active Medications Generic Name Dose Route Start Last Admin Trade Name Kallie PRN Reason Stop Dose Admin Aspirin 81 mg 05/31/24 21:00 05/31/24 20:19 Aspirin 81 Mg Ectab PO 06/30/24 20:59 81 mg HS CONNIE Administration Atenolol 50 mg 06/01/24 09:00 06/01/24 08:45 Atenolol 50 Mg Tablet PO 07/01/24 08:59 50 mg QAM CONNIE Administration Chlorthalidone 25 mg 06/01/24 09:00 06/01/24 08:45 Chlorthalidone 25 Mg Tab PO 07/01/24 08:59 25 mg QAM CONNIE Administration Diltiazem HCl 300 mg 06/01/24 09:00 06/01/24 08:45 Diltiazem Hcl 300 Mg Capcr PO 07/01/24 08:59 300 mg QAM CONNIE Administration Doxycycline Hyclate 100 mg 05/31/24 21:00 06/01/24 08:45 Doxycycline Hyclate 100 Mg Cap PO 06/10/24 20:59 100 mg BID CONNIE Administration Finasteride 5 mg 06/01/24 09:00 06/01/24 08:45 Finasteride 5 Mg Tab PO 07/01/24 08:59 5 mg QAM CONNIE Administration Ceftriaxone Sodium 2,000 mg in 50 mls @ 100 mls/hr 06/01/24 10:30 06/01/24 10:42 Rocephin IV 06/11/24 10:29 Infused Q24H CONNIE Infusion Potassium Chloride 40 meq 06/01/24 11:15 06/01/24 11:18 Potassium Chloride Crtab 20 Meq Tabcr PO 07/01/24 11:14 40 meq BID CONNIE Administration Pravastatin Sodium 20 mg 05/31/24 21:00 05/31/24 20:19 Pravastatin Sod 20 Mg Tab PO 06/30/24 20:59 20 mg HS CONNIE Administration Psyllium Hydrophilic Mucilloid 4 gm 06/01/24 09:00 06/01/24 08:45 Psyllium Or Guar Gum Fiber 4gm Packet PO 07/01/24 08:59 4 gm QAM CONNIE Administration Tamsulosin HCl 0.4 mg 06/01/24 09:00 06/01/24 08:45 Tamsulosin Hcl 0.4 Mg Cap PO 07/01/24 08:59 0.4 mg QAM CONNIE Administration
[2024-06-01] MEDS: LACTATED RINGER'S 500 ML IV ONE (17:34)
[2024-06-01 17:45] LABS: BUN Creatinine Ratio 20.7 (10-20); Calcium 8.3 mg/dl (8.6-10.3); Creatinine Clr Calc Pharmacy 110.5 ml/min; Est GFR (African American) 103.1 ml/min; Potassium 3.4 mmol/L (3.5-5.1)
--- NOTE | 2024-06-01 21:07 | Communication Note ---
Date of Service: June 01, 2024 RN communicated concerns about given home aspirin given decreasing hemoglobin and platelet counts from admission. No overt bleeding as per RN. Hold home aspirin for now given cytopenia and absence of indication for maintenance Rx on review of outpatient records.
--- NOTE | 2024-06-01 23:53 | Electrocardiogram Report ---
Test Reason : Blood Pressure : / mmHG Vent. Rate : 083 BPM Atrial Rate : 083 BPM P-R Int : 166 ms QRS Dur : 152 ms QT Int : 412 ms P-R-T Axes : 044 -81 021 degrees QTc Int : 484 ms Normal sinus rhythm Right bundle branch block Left anterior fascicular block Bifascicular block Lateral infarct , age undetermined Abnormal ECG When compared with ECG of 22-SEP-2018 01:00, (RBBB and left anterior fascicular block) is now Present Confirmed by Fabio Porter ([id number]) on 06/01/2024 11:53:17 PM Referred By: Liliane Armendariz Confirmed By:Fabio Porter
[2024-06-02 06:43] LABS: Hematocrit (blood only) 38.8 % (42.0-52.0); Hemoglobin 13.6 g/dl (14.0-18.0); Mean Corpuscular Hgb Conc 35.1 g/dL (32.0-36.0); Mean Corpuscular Volume 85.7 fL (80.0-100.0); Mean Platelet Volume 11.7 fL (9.4-12.4); Platelet Count 87 K/uL (130-400); RDW Coefficient of Variation 12.9 % (11.5-14.5); RDW Standard Deviation 39.6 fL (36.4-46.3); Red Blood Count 4.53 M/uL (4.70-6.10); White Blood Count 3.45 K/ul (4.8-10.8)
[2024-06-02 07:02] LABS: Ferritin 1093.8 ng/ml (8-388)
[2024-06-02 07:08] LABS: Folate (Folic Acid),Ser orPlas 10.14 ng/ml (>5.38)
[2024-06-02 07:24] LABS: ALC (manual) 1.79 K/uL (1.2-3.4); ANC (manual) 1.14 K/uL (1.4-6.5); Eosinophils % (manual) 3 %; Immature Retic Fraction 10.9 % (2.3-15.9); Lymphocytes # (manual) 1.14 K/uL (1.2-3.4); Lymphocytes % (manual) 33 %; Monocytes # (manual) 0.41 K/uL (0.11-0.59); Monocytes % (manual) 12 %; Neutrophils # (manual) 1.14 K/uL (1.40-6.50); Neutrophils % (manual) 33 %; Reactive Lymphocytes # (manual) 0.66 K/uL; Reactive Lymphocytes % (manual) 19 %; Reticulated Hemoglobin 27.9 pg (28.2-36.6); Reticulocyte % 0.85 % (0.50-2.00)
[2024-06-02] MEDS: CYANOCOBALAMIN (B-12) 500 MCG TABLET PO SCH (09:17)
[2024-06-02 09:30] LABS: Albumin Globulin Ratio 1.3 (0.9-2); Albumin Level 3.1 gm/dl (3.4-5.0); BUN Creatinine Ratio 20.9 (10-20); Bilirubin,Total 0.9 mg/dl (0.2-1.0); Calcium 8.3 mg/dl (8.6-10.3); Creatinine Clr Calc Pharmacy 135.1 ml/min; Est GFR (Non-African American) 96.7 ml/min; Globulin 2.4 gm/dl (2.5-4.0); Potassium 3.5 mmol/L (3.5-5.1); Total Protein 5.5 gm/dl (6.0-8.3)
[2024-06-02 10:09] LABS: Magnesium 1.7 mg/dl (1.7-2.4); Phosphorus 2.5 mg/dl (2.5-4.9)
--- NOTE | 2024-06-02 11:34 | Discharge Summary ---
Discharge Summary Date of Service June 02, 2024 Principal Dx & Hospital Course #1 = Principal Diagnosis (1) Lyme borreliosis: (2) Electrolyte and fluid disorder: (3) Hypertension: (4) HLD (hyperlipidemia): (5) Left foot drop: (6) Constipation: Plan Mr. Miranda is a 69 year old gentleman with a PMHX significant for HLD, HTN, BPH and severe left sided sciatica with left foot drop in brace who is admitted for management of multiple electrolyte abnormalities. Patient found to be lyme positive and started on CTX/doxy. Patient reports "dogsitting" recently and that the dog may have been the source for tick at home, otherwise patient does not recall recent bite or outdoor activity. Labs noted progressive pancytopenia; however, patient with subjective improvement. Over the course of admission, cytopenias started uptrending. Electrolyte abnormalities resolved as well. Notably, admission EKG abnormal (bifascicular block) as well as lower end of normal BP and sinus bradycardia. Repeat EKG on day of discharge without block--suspect contribution from lyme and medications. Given improvement in labs and stable hemodynamics, discussed discharge with patient who was agreeable. Denies any chest pain, palpitations, presyncope/lightheadedness. Reviewed EMR with only history of HTN, therefore Atenolol/Diltazem held 2/2 abnormal ekg/low blood pressure with plans for PCP follow up. Chlorthalidone held iso hypokalemia and hyponatremia. #Pancytopenia #B12 deficiency likely 2/2 lyme infection, no recent treatments resulting in immunocompromised status Uptrending the am of discharge Follow up OP labs, CBC w diff in 1 week Start b12 supplementation #Lyme borreliosis IgG +lyme Continue doxycycline for 10 day total course #Multiple electrolyte abnormalities *resolved hyponatremia, hypokalemia Improving with po intake and oral replacement Chlorthalidone held BMP in 1 week #Relative Hypotension #Sinus bradycardia #Abnormal EKG #Hypertension No active ACS, concern for ischemia Hold Diltazem in am, BP in 90s, asymptomatic hold chlorthalidone 2/2 electrolyte abnormalities Hold atenolol iso bradycardia to low 50s iso treatment for lyme Discuss follow up with PCP when to resume # HLD (hyperlipidemia): Continue pravastatin #Chronic Left foot drop: Continue using brace PT and OT consult: declined home health #Constipation: Continue Colace and MiraLAX Notes For Next Care Provider -CBC, BMP 1 week -Consider repeat EKG Medication Changes From Visit Doxycycline 100mg bid Held: Diltazem 300mg daily 2/2 low BP, atenolol 2/2 abnormal EKG & lyme, chlorthalidone 2/2 hyponatremia/hypokalemia Admission HPI Per Admitting Provider Jonathan Miranda is a 69 y/o male with a PMHX significant for HLD, HTN, BPH and left sided sciatica with left foot drop(He wears a brace on the left lower extremity). He presents to the ED today with complaints of chills, fever, and weakness. He has a poor appetite. His symptoms have been present For 2 to 3 days. He has a dry cough. He denies sputum production. He denies sore throat or nasal congestion. He denies headache. His Lyme disease screen was positive in the ED. He cannot recall a tick bite but does mention a small lesion on his left upper thigh. He does have a dog that is in the [place] quite a bit. He does not go outside much because of his foot drop. Workup in the ED reveals a clear chest x-ray. He has evidence of hypokalemia, hypomagnesia and hyponatremia. He was given IV magnesium and oral potassium supplementation in the ED. He was started on IV ceftriaxone and given oral doxycycline. Patient is admitted for further workup and treatment. Admission Exam Per Admitting Provider Constitutional: well developed and well nourished Eyes: PERRL, conjunctivae normal, anicteric sclerae ENMT: external ear and nose normal, oropharynx normal Neck: trachea midline, no thyromegaly Respiratory: normal respiratory effort, lungs clear to auscultation Cardiovascular: Rate/Rhythm: regular rate and regular rhythm Chest (Breasts): Chest: normal inspection of chest Gastrointestinal (Abdomen): Inspection/Auscultation: abdomen normal to inspection and normal bowel sounds Skin: no rashes, warm and dry Neurologic: Has a foot drop and weakness on the left. CN intact, Alert O X 3 Discharge Exam Constitutional WD/WN, vitals as above Respiratory normal respiratory effort, lungs clear to auscultation Cardiovascular RRR, no murmur, no edema Gastrointestinal (Abdomen) normal bowel sounds, soft, nontender, no hepatosplenomegaly Updated Medication List Medication Instructions Recorded Confirmed Type aspirin 81 mg tablet,delayed 81 mg PO HS 09/22/18 05/31/24 History release diltiazem HCl 300 mg 300 mg PO QAM 09/22/18 05/31/24 History tablet,extended release 24 hr atenolol 50 mg tablet 50 mg PO QAM 01/18/21 05/31/24 History docusate sodium 100 mg capsule 100 mg PO DAILY PRN Constipation 01/18/21 05/31/24 History omega-3 fatty acids 1,000 mg PO HS 01/18/21 05/31/24 History pravastatin 20 mg tablet 20 mg PO HS 01/18/21 05/31/24 History psyllium husk 3.4 gram/5.4 gram 1 tbsp PO QAM 01/18/21 05/31/24 History oral powder (Metamucil) finasteride 5 mg tablet 5 mg PO QAM 03/02/23 05/31/24 History tamsulosin 0.4 mg capsule 0.4 mg PO QAM 03/02/23 05/31/24 History cyanocobalamin (vitamin B-12) 500 1,000 mcg (2 x 500 mcg) PO QAM #30 06/02/24 Rx mcg tablet tabs doxycycline hyclate 100 mg capsule 100 mg PO BID #17 caps 06/02/24 Rx Hospital Stay Data Consultations 05/31/24 12:20 ED Decision to Admit Stat Pending Results Patient Have Any Pending Studies at Discharge: No Discharge Instructions Given to Patient (Per Discharging Provider) You were admitted for evaluation of fevers and chills, and found to have lyme disease. You labs also revealed low blood counts and abnormal electrolytes. The blood counts (white blood cells and platelets) improved with antibiotics and likely was related to Lyme Disease. Your abnormal electrolytes (low potassium and low sodium) were like related to multiple factors: Lyme Disease, recent poor appetite, Chlorthalidone These values improved with treating the lyme disease, increasing your intake, and holding the Chlorthalidone. Your blood pressure and heart were also consistently on the lower end of normal without being on your blood pressure medication . Please HOLD/STOP the following medications: -Diltazem 300mg daily -Chlorthalidone 25mg daily -Atenolol 50mg daily Continue all other home medications Please take Doxycycline 100mg two times a day (your next dose is this evening) until the course is complete You were noted to have low b12: it is recommended you start supplementing with oral B12 (cyanocobalamin 1000mg every morning) Please follow up with your PCP 06/10/2024 to discuss blood pressure medications and repeat labs (CBC w diff and BMP) Total Time Total Time Spent Total Time Spent (In Minutes): 45
--- NOTE | 2024-06-02 12:32 | Electrocardiogram Report ---
Test Reason : Blood Pressure : / mmHG Vent. Rate : 050 BPM Atrial Rate : 050 BPM P-R Int : 176 ms QRS Dur : 116 ms QT Int : 482 ms P-R-T Axes : 065 -03 -04 degrees QTc Int : 439 ms Sinus bradycardia with sinus arrhythmia Nonspecific T wave abnormality Abnormal ECG When compared with ECG of 31-MAY-2024 10:19, Vent. rate has decreased BY 33 BPM (RBBB and left anterior fascicular block) is no longer Present Criteria for Septal infarct are no longer Present Confirmed by Edward Lemus ([id number]) on 06/02/2024 12:31:55 PM Referred By: Liliane Armendariz Confirmed By:Edward Lemus
== END 2024-06-02 12:50 | disposition home or self-care (01) | DRG 868 ==
LOC: ED 10:04 → 4W 13:10 → SUATTDRO 13:10 → 4W 15:14
DX: D61.818 Other pancytopenia; E78.5 Hyperlipidemia, unspecified; M21.372 Foot drop, left foot; Z83.3 Family history of diabetes mellitus; E87.1 Hypo-osmolality and hyponatremia; E87.6 Hypokalemia; K59.00 Constipation, unspecified; Z79.82 Long term (current) use of aspirin; N40.0 Benign prostatic hyperplasia without lower urinary tract symptoms; R00.1 Bradycardia, unspecified; A69.20 Lyme disease, unspecified